=== PATIENT | female | born 1955 | race Caucasian/White ===

== ENCOUNTER 2016-05-04 09:58 | Outpatient (RCR) | payer BC ==
[~2016-05-04 09:58] MED LIST: CHOL20002 PO; ESTR0.5T PO; LORA1TAB59 PO
[2016-05-04 11:59] LABS: BASOPHILS % (AUTO) 1 % (0-10); EOSINOPHILS # (AUTO) 0.1 10^3/uL (0.0-0.3); EOSINOPHILS % (AUTO) 2 % (0-10); LYMPHOCYTES # (AUTO) 1.5 X 10^3 (1.0-4.0); LYMPHOCYTES % (AUTO) 30 % (12-44); MEAN CORPUSCULAR HEMOGLOBIN 29 PG (25-34); MEAN CORPUSCULAR HGB CONC 34 G/DL (32-36); MEAN CORPUSCULAR VOLUME 88 FL (80-99); MEAN PLATELET VOLUME 9.6 FL (7.4-10.4); MONOCYTES # (AUTO) 0.3 X 10^3 (0.0-1.0); MONOCYTES % (AUTO) 6 % (0-12); NEUTROPHILS # (AUTO) 3.2 X 10^3 (1.8-7.8); NEUTROPHILS % (AUTO) 61 % (42-75); PLATELET COUNT 275 10^3/uL (130-400); RED BLOOD COUNT 4.59 10^6/uL (4.35-5.85); RED CELL DISTRIBUTION WIDTH 12.8 % (10.0-14.5); WHITE BLOOD COUNT 5.1 10^3/uL (4.3-11.0)
[2016-05-04 12:19] LABS: ALANINE AMINOTRANSFERASE 9 U/L (0-55); ALBUMIN 4.6 G/DL (3.2-4.5); ANION GAP 10 MMOL/L (5-14); ASPARTATE AMINO TRANSFERASE 17 U/L (5-34); BILIRUBIN,TOTAL 0.3 MG/DL (0.1-1.0); BLOOD UREA NITROGEN 16 MG/DL (7-18); BUN/CREATININE RATIO 18; CALCIUM 9.2 MG/DL (8.5-10.1); CARBON DIOXIDE 26 MMOL/L (21-32); CHLORIDE 102 MMOL/L (98-107); GFR ESTIMATED > 60; GLUCOSE 97 MG/DL (70-105); POTASSIUM 4.4 MMOL/L (3.6-5.0); SODIUM 138 MMOL/L (135-145); TOTAL PROTEIN 7.3 G/DL (6.4-8.2)
== END 2016-05-13 13:01 | disposition home or self-care (01) ==
LOC: ONC 09:58
PROVIDERS: ATTEND Internal Medicine Hematology & Oncology
DX: C50.511 Malignant neoplasm of lower-outer quadrant of right female breast (principal); Z85.43 Personal history of malignant neoplasm of ovary; E53.8 Deficiency of other specified B group vitamins; M81.0 Age-related osteoporosis without current pathological fracture; Z17.0 Estrogen receptor positive status [ER+]; Z90.710 Acquired absence of both cervix and uterus; Z79.899 Other long term (current) drug therapy
CPT/HCPCS: 36415; 80053; 85025; 99213; 99214

== ENCOUNTER → 2016-05-11 | Outpatient (CLI) | payer BC ==
--- NOTE | 2016-05-11 16:44 | Diagnostic Imaging Report ---
EXAMINATION: PET-CT TECHNIQUE: Serum glucose level at the time of the study is: 82 mg/dL. 13 mCi of FDG was administered intravenously followed by obtaining PET images with corresponding noncontrast CT scan images. The CT scan was performed for anatomic correlation and attenuation correction and was not performed according to the diagnostic protocol of the areas covered. The scan was performed from the head to mid thighs. INDICATION: Breast cancer diagnosed recently with a biopsy on the right side. FINDINGS: There is an 8 mm nodule seen in the inferior central aspect of the right breast with minimal increased FDG uptake likely related to the recently diagnosed breast cancer. This does not have significantly increased FDG uptake and is presumably related to a small tumor size. There is no significantly increased FDG uptake in a correlating lymph node in the axilla. Mild hypermetabolism along the posterolateral aspect of the right humeral head at location of surgically placed anchor is seen. There is otherwise no hypermetabolic mass of significance seen in the chest. There is no hypermetabolic mass identified in the neck. There is symmetric FDG uptake noted in the brain. In the abdomen and pelvis: There is a prominent uptake related to tracer excretion within the urinary tract without suspicious hypermetabolic mass or enlarged lymph node identified otherwise. IMPRESSION: No significant hypermetabolism is seen in the subcentimeter biopsy-proven cancer in the right breast noted. This is likely secondary to the small tumor size. There is no PET evidence of lymph node spread or metastatic disease. Dictated by: Dictated on workstation # [id number]
== END ==
LOC: RAD 09:29
PROVIDERS: ATTEND Internal Medicine Hematology & Oncology
DX: C50.911 Malignant neoplasm of unspecified site of right female breast (principal)

== ENCOUNTER → 2016-07-16 | Outpatient (CLI) | payer BC ==
[~2016-07-16] VITALS: Ht 167.6 cm; Wt 52.2 kg
[~2016-07-16] MED LIST changes: +DENOSUMAB 60 MG/1 ML (PROLIA) SQ NR
--- OUTSIDE RECORDS SUMMARY | 2016-07-16 12:49 | XMS REPORT | Continuity of Care Document ---
Author Author [facility] Organization [facility] Address Unknown Phone Unavailable Care Team Providers Care Belt Sander Stone Name Role Phone Kody Artomaira PCP [phone] Source Comments Some departments are not documenting in the electronic medical record. If you do not see the information that you expected, contact Release of Information in the Health Information Management department at [phone] for further assistance in locating additional records.[facility] Active Allergies and Adverse Reactions Allergen Noted Date Severity Reactions Comments Phenergan 06/02/2016 High HALLUCINATIONS Sulfa (Sulfonamide 06/02/2016 Low SEE COMMENTS blood disorder Antibiotics) Current Medications Prescription Sig. Disp. Refills Start End Date Status Date denosumab (PROLIA) 60 Inject 60 mg under the Active mg/mL syrg skin once. once every 6 mos cyanocobalamin(DIL) Inject 100 mcg into the Active (VITAMIN B-12, RUBRAMIN) muscle every 30 days. 100 mcg/mL cholecalciferol(+) Take 2,000 Units by mouth Active (VITAMIN D-3) 2,[address] unit daily. tablet omeprazole DR(+) Take 20 mg by mouth three Active (PRILOSEC) 20 mg capsule times daily. polyethylene glycol 3350 Take 17 g by mouth three Active (MIRALAX) 17 g packet times daily. DOCUSATE CALCIUM (STOOL Take by mouth three Active SOFTENER PO) times daily. loratadine/pseudoephedrin Take 1 Tab by mouth as Active e (CLARITIN-D 12 HOUR) Needed. 5/120 mg tablet ondansetron hcl (ZOFRAN) Take 8 mg by mouth every Active 8 mg tablet 8 hours as needed for Nausea or Vomiting. DEXAMETHASONE (DECADRON Take by mouth. Active PO) DOCETAXEL (TAXOTERE IV) Administer through vein. Active CYCLOPHOSPHAMIDE (CYTOXAN Administer through vein. Active IV) Active Problems Problem Noted Date Malignant neoplasm of central portion of right female breast (HCC) 2016 Overview: DIAGNOSIS: 1. Right grade 3 IDC (ER95%, PR5%, HER2 1+, Ki-67 30%) 2. MyRisk negative HISTORY: Ms. Lehman is a female who presented [facility] on 06/02/2016 at age 61 for evaluation of right breast cancer. Ms. Lehman first palpated a lump in March 2016. She went in for screening mammogram at the beginning of 2015 and an asymmetry was seen in the right breast. Right breast sono-guided biospy revealed grade 3 invasive ductal carcinoma. An Oncotype DX was run on her biopsy specimen and came back as 26. BREAST IMAGING: Mammogram: -- Bilateral screening mammogram 04/13/16 ([place], [place]) revealed heterogeneously dense breast tissue. There was a 7 mm asymmetry along the medial periareolar region in the right breast. There were benign scattered calcifications bilaterally. The left breast demonstrated no change. -- Right diagnostic mammogram 04/23/16 ([place], [place]) revealed a persistent 7 mm asymmetry along the medial aspect of the periareolar region. Ultrasound: -- Right breast ultrasound 04/23/16 ([place], [place]) revealed at 6:00, 3 cm FTN there was a 7 x7 x 8 mm hypoechoic lesion with peripheral internal vascularity. There were no other abnormalities in the right breast. MRI: Staging: -- PET scan 05/11/16 ([place], [place]) revealed no evidence of distant metastasis. REPRODUCTIVE HEALTH: Age at first Menarche: 13 Age at First Live : 36 Age at Menopause: MIKE/BSO at 38, HRT x 20 years : 1 Para: 1 : None PROCEDURE: PERTINENT PMH: FAMILY HISTORY: Paternal aunt with breast cancer in 70s PHYSICAL EXAM on PRESENTATION: MEDICAL ONCOLOGY: Dr. Nat Gates REFERRED BY: Dr. Nat Gates Most Recent Encounters Date Type Specialty Providers Description 08/26/2016 [facility] Juan M Landin DO Malignant neoplasm of Encounter central portion of right female breast (HCC) 07/01/2016 Prep for Case Juan M Landin DO 06/25/2016 Orders Only Oncology Juan M Landin DO Malignant neoplasm of right female breast, unspecified site of breast (Primary Dx) 06/25/2016 Telephone Oncology Juan M Landin DO Results 06/21/2016 Hospital Radiology Juan M Landin, Encounter 06/21/2016 Hospital Radiology Juan M Landin, Encounter 06/21/2016 Hospital Radiology Juan M Landin DO Canceled (Other) Encounter 06/21/2016 Hospital Radiology Juan M Landin, Encounter 06/21/2016 Ancillary Oncology Juan M Landin DO Malignant neoplasm of Orders right female breast, unspecified site of breast (Primary Dx); Abnormal magnetic resonance imaging of left breast 06/16/2016 Screening Form 06/14/2016 Telephone Oncology Juan M Landin, Results 06/11/2016 Hospital Radiology Juan M Landin DO Encounter 06/09/2016 Screening Form 06/02/2016 Office Visit Oncology Juan M Landin DO Malignant neoplasm of central portion of right female breast (HCC) (Primary Dx) 06/02/2016 Hospital Radiology Juan M Landin, Encounter 06/02/2016 Hospital Radiology Juan M Landin DO Canceled (PROVIDER Encounter CANCELED) 06/02/2016 Ancillary Oncology Juan M Landin DO Malignant neoplasm of Orders right female breast, unspecified site of breast (Primary Dx) 06/01/2016 [facility] Juan M Landin DO Breast cancer (HCC) Encounter 05/26/2016 Ancillary Radiology Outpatient, Radiologist Diagnosis unknown Orders (Primary Dx) 05/26/2016 Ancillary Radiology Outpatient, Radiologist Diagnosis unknown Orders (Primary Dx) 05/21/2016 Telephone Oncology Juan M Landin DO Navigation Assessment 05/21/2016 Orders Only Oncology Juan M Landin DO Malignant neoplasm of right female breast, unspecified site of breast (HCC) (Primary Dx) 05/11/2016 Hospital Radiology Encounter 04/27/2016 Hospital Radiology Encounter 04/27/2016 Hospital Radiology Encounter 04/23/2016 Hospital Radiology Encounter 04/23/2016 Hospital Radiology Encounter Social History Tobacco Use Types Packs/Day Years Used Date Never Smoker Smokeless Tobacco: Never Used Alcohol Use Drinks/Week oz/Week Comments Yes 2 Cans of 1.8 rarely beer 1 Shots of liquor Last Filed Vital Signs Vital Sign Reading Time Taken Blood Pressure 120/55 06/02/2016 1:19 PM ADJUNCT FACULTY INSTRUCTOR Pulse 102 06/02/2016 1:19 PM ADJUNCT FACULTY INSTRUCTOR Temperature 36.7 C (98 F) 06/02/2016 1:19 PM ADJUNCT FACULTY INSTRUCTOR Respiratory Rate 16 06/02/2016 1:19 PM ADJUNCT FACULTY INSTRUCTOR Height 1.676 m (5' 6") 06/02/2016 1:19 PM ADJUNCT FACULTY INSTRUCTOR Weight 53.343 kg (117 lb 9.6 oz) 06/02/2016 1:19 PM ADJUNCT FACULTY INSTRUCTOR Body Mass Index 18.99 06/02/2016 1:19 PM ADJUNCT FACULTY INSTRUCTOR Oxygen Saturation 100% 06/02/2016 1:19 PM ADJUNCT FACULTY INSTRUCTOR Plan of Care Date Type Specialty Providers Description 08/23/2016 Appointment Breast Clinic / Breast Serene Barrera, RN Center 08/23/2016 Appointment Breast Clinic / Breast Juan M Landin DO Center [address] [place] [address] [phone] (Fax) 08/26/2016 Surgery Juan M Landin DO RIGHT RADIOACTIVE SEED [address] [facility] LOCALIZED LUMPECTOMY, [address] [place] [address] BIOPSY, POSSIBLE AXILLARY [phone] LYMPH NODE DISSECTION [phone] (Fax) WITH SKIN EXCISION 08/26/2016 Appointment Radiology Juan M Landin DO [address] [place] [address] [phone] (Fax) 09/06/2016 Appointment Breast Clinic / Breast Juan M Landin DO Center [address] [place] [address] [phone] (Fax) Health Maintenance Due Date Last Done Comments Hepatitis C Screening 1955 Physical (Comprehensive) 1962 Exam Pertussis Vaccine 1966 Tetanus Vaccine 1972 Cervical Cancer Screening 1976 Breast Cancer Screening 1995 Colorectal Cancer 2005 Screening Shingles Vaccine 2015 Influenza Vaccine 01/07/2017 Procedures from Last 3 Months Procedure Name Priority Date/Time Associated Diagnosis Comments PROCEDURE RECORD-SCAN 06/25/2016 Results for this 2:20 PM ADJUNCT FACULTY INSTRUCTOR procedure are in the results section. Results from Last 3 Months PROCEDURE RECORD-SCAN (06/25/2016 2:20 PM) Narrative Ordered by an unspecified provider. MAMMO DIAG LT (06/21/2016 3:20 PM) Impressions ACR BI-RADS Assessments: Post procedure mammogram for marker placement RECOMMENDATION: Follow-up with your physician. Narrative Last mammogram was performed 2 months ago. Reason for exam: addl eval requested from prior study. MRI Clip Placement Performed by: RUSS BRAUN Manipulative Therapy Specialist Document Design Specialist [id number] MAMMO DIAG LT: LEFT BREAST - JUNE 21, 2016 - Routine views. Technologist: Ledy MARADIAGA Tech Document Design Specialist Prior study comparison: June 11, 2016, bilateral [id number] MRI BREAST BILAT w/O W CONTRAST, performed at [facility] I.April 13, 2016, bilateral mammogram. History- Status post MRI guided biopsy with clip placement. Lateral and CC views document buckle-shaped clip placement at the expected location of the 3:00 left breast biopsy. Approved by Jolene Benoit M.D. on 06/22/2016 9:03 AM By my electronic signature, I attest that I have personally reviewed the images for this examination and formulated the interpretations and opinions expressed in this report Finalized by Arley Russell M.D. on 06/22/2016 11:38 AM. Dictated by Jolene Benoit M.D. on 06/22/2016 8:59 AM. Electronically signed and approved by: Arley Russell M.D. [id number] Procedure Note Interface, Radiant Results - [facility] Jun 22, 2016 11:38 AM ADJUNCT FACULTY INSTRUCTOR Last mammogram was performed 2 months ago. Reason for exam: addl eval requested from prior study. MRI Clip Placement Performed by: Ledy MARADIAGA Tech Document Design Specialist [id number] MAMMO DIAG LT: LEFT BREAST - JUNE 21, 2016 - Routine views. Technologist: Ledy MARADIAGA Tech Document Design Specialist Prior study comparison: June 11, 2016, bilateral [id number] MRI BREAST BILAT w/O W CONTRAST, performed at [facility] I. April 13, 2016, bilateral mammogram. History- Status post MRI guided biopsy with clip placement. Lateral and CC views document buckle-shaped clip placement at the expected location of the 3:00 left breast biopsy. Approved by Jolene Benoit M.D. on 06/22/2016 9:03 AM By my electronic signature, I attest that I have personally reviewed the images for this examination and formulated the interpretations and opinions expressed in this report Finalized by Arley Russell M.D. on 06/22/2016 11:38 AM. Dictated by Jolene Benoit M.D. on 06/22/2016 8:59 AM. Electronically signed and approved by: Arley Russell M.D. [id number] IMPRESSION ACR BI-RADS Assessments: Post procedure mammogram for marker placement RECOMMENDATION: Follow-up with your physician. MRI BIOPSY BREAST 1ST LESION LT (06/21/2016 2:47 PM) Impressions RECOMMENDATION: Follow-up with your physician.The benign pathology findings are concordant with imaging. Narrative [id number] MRI BIOPSY BREAST 1ST LESION LT: LEFT BREAST - JUNE 21, 2016 - Technologists: Maria Victoria Eid, program development manager; JAJA CAPONE History- 61-year-old female with right breast invasive ductal carcinoma who presents for MRI guided biopsy of left breast clumped non mass enhancement. No sonographic correlate was seen. Procedure- The procedure was performed by Dr. Benoit under direct supervision by Dr. Russell. Informed consent was obtained. Pre and post contrast images were obtained. Using sterile procedure, local anesthetic, and MRI guidance, approximately 12, 9 Gauge cores were obtained at 3:00 with a vacuum assistedautomated device, without complication. A marking clip was placed. Specimens were sent in formalin for histologic analysis. Approved by Jolene Benoit M.D. on 06/21/2016 3:49 PM By my electronic signature, I attest that I have personally reviewed the images for this examination and formulated the interpretations and opinions expressed in this report Finalized by Arley Russell M.D. on 06/22/2016 11:39 AM. Dictated by Jolene Benoit M.D. on 06/21/2016 3:46 PM. PATHOLOGY RESULTS: BENIGN Pathologist: Srinivasan Chery at [facility] Breast Imaging Benign intramammary lymph node, fibrosis, duct ectasia, and negative for carcinoma. Final Diagnosis: A. Breast, "left 3:00", core needle biopsy: Fragments of intramammary lymph node, negative for carcinoma. See comment Dense fibrosis and very focal duct ectasia. Comment: Wall CK immunostains performed on blocks A3 and A5 support the above diagnosis. Attestation: By this signature, I attest that I have personally formulated the final interpretation expressed in this report and that the above diagnosis is based upon my examination of the slides and/or other material indicated in this report. +++Electronically Signed Out By+++ ksw/06/22/2016 Interpreted by: Srinivasan Chery MD, Attending Physician Angela Upton M.D. Resident 06/25/2016 Electronically signed and approved by: Arley Russell M.D. [id number] Procedure Note Interface, Radiant Results - TueJun 30, 2016 10:00 AM ADJUNCT FACULTY INSTRUCTOR [id number] MRI BIOPSY BREAST 1ST LESION LT: LEFT BREAST - JUNE 21, 2016 - Technologists: Maria Victoria Eid, program development manager; JAJA CAPONE History- 61-year-old female with right breast invasive ductal carcinoma who presents for MRI guided biopsy of left breast clumped non mass enhancement. No sonographic correlate was seen. Procedure- The procedure was performed by Dr. Benoit under direct supervision by Dr. Russell. Informed consent was obtained. Pre and post contrast images were obtained. Using sterile procedure, local anesthetic, and MRI guidance, approximately 12, 9 Gauge cores were obtained at 3:00 with a vacuum assisted automated device, without complication. A marking clip was placed. Specimens were sent in formalin for histologic analysis. Approved by Jolene Benoit M.D. on 06/21/2016 3:49 PM By my electronic signature, I attest that I have personally reviewed the images for this examination and formulated the interpretations and opinions expressed in this report Finalized by Arley Russell M.D. on 06/22/2016 11:39 AM. Dictated by Jolene Benoit M.D. on 06/21/2016 3:46 PM. PATHOLOGY RESULTS: BENIGN Pathologist: Srinivasan Chery at [facility] Breast Imaging Benign intramammary lymph node, fibrosis, duct ectasia, and negative for carcinoma. Final Diagnosis: A. Breast, "left 3:00", core needle biopsy: Fragments of intramammary lymph node, negative for carcinoma. See comment Dense fibrosis and very focal duct ectasia. Comment: Wall CK immunostains performed on blocks A3 and A5 support the above diagnosis. Attestation: By this signature, I attest that I have personally formulated the final interpretation expressed in this report and that the above diagnosis is based upon my examination of the slides and/or other material indicated in this report. +++Electronically Signed Out By+++ ksw/06/22/2016 Interpreted by: Srinivasan Chery MD, Attending Physician Angela Upton M.D. Resident 06/25/2016 Electronically signed and approved by: Arley Russell M.D. [id number] IMPRESSION RECOMMENDATION: Follow-up with your physician. The benign pathology findings are concordant with imaging. US BREAST TARGET LT (06/21/2016 1:03 PM) Impressions ACR BI-RADS Assessments: BIRAD 2-Benign RECOMMENDATION: MR guided biopsy of the left breast. Narrative Reason for exam: mRI abnormality. [id number] US BREAST TARGET LT: LEFT BREAST - JUNE 21, 2016 - Technologist: Nathaly Saavedra senior project architect Patient presents to evaluate finding on recent MRI within the left breast. Ultrasound does not demonstrate correlate for the finding on MRI therefore MRI guided biopsy will be performed later today. Finalized by Arley Russell M.D. on 06/21/2016 2:04 PM. Dictated by Arley Russell M.D. on 06/21/2016 1:04 PM. Electronically signed and approved by: Arley Russell M.D. [id number] Procedure Note Interface, Radiant Results - Mon Jun 21, 2016 2:04 PM ADJUNCT FACULTY INSTRUCTOR Reason for exam: mRI abnormality. [id number] US BREAST TARGET LT: LEFT BREAST - JUNE 21, 2016 - Technologist: Nathaly Saavedra senior project architect Patient presents to evaluate finding on recent MRI within the left breast. Ultrasound does not demonstrate correlate for the finding on MRI therefore MRI guided biopsy will be performed later today. Finalized by Arley Russell M.D. on 06/21/2016 2:04 PM. Dictated by Arley Russell M.D. on 06/21/2016 1:04 PM. Electronically signed and approved by: Arley Russell M.D. [id number] IMPRESSION ACR BI-RADS Assessments: BIRAD 2-Benign RECOMMENDATION: MR guided biopsy of the left breast. SURGICAL PATHOLOGY (06/21/2016 8:34 AM) Component Value Range PATHOLOGY REPORT [facility] [email or web address] Shannan Tran MD, PhD, Director of Anatomic Pathology Department of Pathology and Laboratory Medicine [address] [place] [id number] Surgical Pathology Office: [phone] SURGICAL PATHOLOGY REPORT NAME: CHANDNI LEHMAN HUY SURG PATH #: [id number] MR #: [id number] SPECIMEN CLASS: SR BILLING #: [id number] ALT ID #: LOCATION: [facility] DATE OF PROCEDURE: 06/21/2016 AGE: 61 SEX: F DATE RECEIVED: 06/22/2016 : 1955 TIME RECEIVED: 08:34 PHYSICIAN: JUAN M LANDIN DO DATE OF REPORT: 06/25/2016 COPY TO: ARLEY RUSSELL MD DATE OF PRINTIN06/25/2016 ################################################## ###################### Final Diagnosis: A. Breast, "left 3:00", core needle biopsy: Fragments of intramammary lymph node, negative for carcinoma. See comment Dense fibrosis and very focal duct ectasia. Comment: Wall CK immunostains performed on blocks A3 and A5 support the above diagnosis. Attestation: By this signature, I attest that I have personally formulated the final interpretation expressed in this report and that the above diagnosis is based upon my examination of the slides and/or other material indicated in this report. +++Electronically Signed Out By+++ wyw/06/22/2016 Interpreted by: Srinivasan Chery MD, Attending Physician Angela Upton M.D. Resident 06/25/2016 ################################################## ###################### Material Received: A: left 3:00 History: 61-year-old female with a history of right breast cancer now with abnormal breast MRI. Gross Description: A. Received in formalin labeled "left breast at 3:00 MRI guided" is a 4.5 x 1.8 x 1.2 cm aggregate of cylindrical yellow-williamson, bloodstained, fatty tissue fragments. The specimen is entirely submitted in cassettes A1-A5. The specimen is placed in formalin at 3 PM on June 21, 2016. (tn) williamson/06/22/2016 Angela Upton M.D. Resident If immunohistochemical stains and/or in situ hybridization are cited in this report, the performance characteristics were determined by the Department of Pathology and Laboratory Medicine of the [facility] ([facility]) in compliance with CLIA'88 regulations. Some of these tests rely on the use of "analyte specific reagents" and are subject to specific labeling requirements by the FDA. Known positive and negative control tissues demonstrate appropriate staining. This testing was developed by the Department of Pathology and Laboratory Medicine of the [facility]. It has not been cleared or approved by the FDA. The FDA has determined that such clearance or approval is not necessary. MRI BREAST BILAT WO/W CONTRAST (06/11/2016 12:02 PM) Impressions ACR BI-RADS Assessments: BIRAD 4-Suspicious RECOMMENDATION: Needle biopsy and ultrasound of the left breast. Narrative Reason for exam: known biopsy proven malignancy. [id number] MRI BREAST BILAT W/O W CONTRAST: JUNE 11, 2016 - Technologist: Jacquelin Martinez program development manager Prior study comparison: June 02, 2016, right breast [id number] US BREAST TARGET RT, performed at [facility] Breast Imag.April 27, 2016, right breast mammogram. History: 61-year-old female with recently diagnosed right breast cancer. Menstrual status: Post hysterectomy Technique: Bilateral breast MRI was performed with dedicated breast coil, with and without contrast in the axial plane using fat saturation, 3D, and with additional T1 and T2 axial images obtained. Images were interpreted with the aid of CAD, including 3D generation of MIP images, subtractions, and pharmacokinetic analysis. 0.2 ml/kg of Multihance (gadolinium) was injected in bolus fashion. Findings- Background enhancement: Minimal Tissue density- dense RIGHT BREAST: At 6:00 anterior depth (2.8 cm from the nipple), there is a 0.8 cm transverse x 0.8 cm AP x 0.7 cm CC irregular enhancing mass with mixed kinetics including washout consistent with known malignancy. The biopsy marker is in adequate position. There is no abnormal skin enhancement. There is no axillary or internal mammary lymphadenopathy. LEFT BREAST: At 3:00 mid depth (image #152), there is a 0.7 cm clumped nonmass enhancement with mixed kinetics. There is no axillary or internal mammary lymphadenopathy. Ancillary findings: None. Impression: 1. 0.8 x 0.8 x 0.7 cm right breast mass at 6:00 anterior depth consistent with known malignancy. 2. 0.7 cm left breast clumped nonmass enhancement at 3:00 mid depth (image #152). Recommend second look ultrasound for biopsy planning. If not seen by ultrasound, then MRI guided biopsy can be performed. Approved by Sheldon Dickinson MD on 06/11/2016 2:48 PM By my electronic signature, I attest that I have personally reviewed the images for this examination and formulated the interpretations and opinions expressed in this report Finalized by Emanuel Martinez M.D. on 06/11/2016 3:18 PM. Dictated by Sheldon Dickinson MD on 06/11/2016 1:27 PM. Electronically signed and approved by: Emanuel Martinez M.D. [id number] Procedure Note Interface, Radiant Results - TueJun 11, 2016 3:19 PM ADJUNCT FACULTY INSTRUCTOR Reason for exam: known biopsy proven malignancy. [id number] MRI BREAST BILAT W/O W CONTRAST: JUNE 11, 2016 - Technologist: Jacquelin Martinez program development manager Prior study comparison: June 02, 2016, right breast [id number] US BREAST TARGET RT, performed at [facility]. April 27, 2016, right breast mammogram. History: 61-year-old female with recently diagnosed right breast cancer. Menstrual status: Post hysterectomy Technique: Bilateral breast MRI was performed with dedicated breast coil, with and without contrast in the axial plane using fat saturation, 3D, and with additional T1 and T2 axial images obtained. Images were interpreted with the aid of CAD, including 3D generation of MIP images, subtractions, and pharmacokinetic analysis. 0.2 ml/kg of Multihance (gadolinium) was injected in bolus fashion. Findings- Background enhancement: Minimal Tissue density- dense RIGHT BREAST: At 6:00 anterior depth (2.8 cm from the nipple), there is a 0.8 cm transverse x 0.8 cm AP x 0.7 cm CC irregular enhancing mass with mixed kinetics including washout consistent with known malignancy. The biopsy marker is in adequate position. There is no abnormal skin enhancement. There is no axillary or internal mammary lymphadenopathy. LEFT BREAST: At 3:00 mid depth (image #152), there is a 0.7 cm clumped nonmass enhancement with mixed kinetics. There is no axillary or internal mammary lymphadenopathy. Ancillary findings: None. Impression: 1. 0.8 x 0.8 x 0.7 cm right breast mass at 6:00 anterior depth consistent with known malignancy. 2. 0.7 cm left breast clumped nonmass enhancement at 3:00 mid depth (image #152). Recommend second look ultrasound for biopsy planning. If not seen by ultrasound, then MRI guided biopsy can be performed. Approved by Sheldon Dickinson MD on 06/11/2016 2:48 PM By my electronic signature, I attest that I have personally reviewed the images for this examination and formulated the interpretations and opinions expressed in this report Finalized by Emanuel Martinez M.D. on 06/11/2016 3:18 PM. Dictated by Sheldon Dickinson MD on 06/11/2016 1:27 PM. Electronically signed and approved by: Emanuel Martinez M.D. [id number] IMPRESSION ACR BI-RADS Assessments: BIRAD 4-Suspicious RECOMMENDATION: Needle biopsy and ultrasound of the left breast. POC CREATININE, RAD (06/11/2016 11:17 AM) Component Value Range Creatinine, POC 0.9 0.4-1.00 mg/dL PATHOLOGY REPORTS FROM OUTSIDE SCAN (06/07/2016 11:03 AM) Narrative Ordered by an unspecified provider. OUTSIDE PATHOLOGY CONSULT (06/02/2016 1:56 PM) Component Value Range PATHOLOGY REPORT [facility] [email or web address] Shannan Tran MD, PhD, Director of Anatomic Pathology Department of Pathology and Laboratory Medicine [address] [place] [id number] Surgical Pathology Office: [phone] PATHOLOGY CONSULTATION NAME: CHANDNI LEHMAN SURG PATH #: [id number] MR #: [id number] ALT ID #: LOCATION: [facility] DATE OF PROCEDURE: 06/02/2016 AGE: 61 SEX: F DATE RECEIVED: 06/02/2016 : 1955 TIME RECEIVED: 13:56 PHYSICIAN: JUAN M LANDIN DO DATE OF REPORT: 06/02/2016 COPY TO: DATE OF PRINTIN06/02/2016 ################################################## ###################### Final Diagnosis: A. Outside case [id number] (Date Collected: 04/27/2016) Breast, right, ultrasound guided needle biopsy: Invasive ductal carcinoma, nuclear grade 2, histologic grade I. See comment. Comment: Breast Cancer Checklist Specimen Type: Needle core biopsy. Laterality: Right Tumor Site: Not specified Histologic Type: Invasive ductal carcinoma Size: The entire tumor size is not known. The single greatest linear length is 0.3 cm and involved cores cannot be determined due to fragmentation. Histologic Grade (Elbert Histologic Score): I/III Tubule Formation: 2 Nuclear Grade: 2 Mitotic Count (40x objective): 1 Total Natalia Score: 5/9. DCIS: Absent Extent of DCIS (%): Absent Lymph-Vascular Invasion: Absent Microcalcifications: Absent Tumor Necrosis: Absent Lymph Node Sampling: n/a Prognostic markers (not received for review, results stated in outside report): Estrogen receptor: Positive, moderate (95%) Progesterone receptor: Positive, moderate (5%) Her2/Sheng: Negative, 1+ Ki-67: 30% The pathology stage assigned here should be regarded as provisional, as it reflects only current pathologic data and does not incorporate full knowledge of the patient's clinical status and/or prior pathology. Attestation: By this signature, I attest that I have personally formulated the final interpretation expressed in this report and that the above diagnosis is based upon my examination of the slides and/or other material indicated in this report. +++Electronically Signed Out+++ juan m/06/02/2016 Interpreted by: Vaibhav Diaz MD, Attending Physician Asad Teresa MD Fellow ################################################## ###################### Material Received: A: Outside Slides x1 [id number], [facility] [address] [place] [address] History: 61-year-old female with a clinical history of breast cancer. Gross Description: A. Received is one (1) outside slide labeled "[id number]", and a properly identified surgical pathology report from [facility] [address] [place] [address]. ; . juan m/06/02/2016 Vaibhav Diaz MD, Attending Physici If immunohistochemical stains and/or in situ hybridization are cited in this report, the performance characteristics were determined by the Department of Pathology and Laboratory Medicine of the [facility] ([employer]) in compliance with CLIA'88 regulations. Some of these tests rely on the use of "analyte specific reagents" and are subject to specific labeling requirements by the FDA. Known positive and negative control tissues demonstrate appropriate staining. This testing was developed by the Department of Pathology and Laboratory Medicine of the [facility]. It has not been cleared or approved by the FDA. The FDA has determined that such clearance or approval is not necessary. US BREAST TARGET RT (06/02/2016 11:08 AM) Impressions ACR BI-RADS Assessments: BIRAD 6-Known biopsy proven malignancy RECOMMENDATION: Treatment plan of the right breast. Narrative [id number] US BREAST TARGET RT: RIGHT BREAST - JUNE 02, 2016 - Technologist: Jose Espinoza, Warehouse General Laborer Prior study comparison: April 27, 2016, right breast mammogram.April 23, 2016, right breast mammogram.April 23, 2016, right breast ultrasound. Targeted ultrasound of the right breast was performed. History. 61-year-old female with recently diagnosed right breast cancer presents for presurgical evaluation. Review of outside mammography shows a right biopsy marker at the 6:00 subareolar region within an obscured mass. The patient has heterogeneously dense breast tissue and additional mammograms are not indicated. Outside mammograms are sufficient. At 6:00 3 cm from the nipple, there is a 0.7 x 0.5 x 0.7 cm oval hypoechoic mass with indistinct margins containing an internal biopsy marker consistent with known malignancy. No suspicious right axillary lymph nodes are seen. By report, the patient has had outside PET/CT imaging. The patient does have dense breast tissue and if breast MRI would be helpful to evaluate for extent of disease or screen the contralateral breast, then this could be performed. Approved by Sheldon Dickinson MD on 06/02/2016 11:21 AM By my electronic signature, I attest that I have personally reviewed the images for this examination and formulated the interpretations and opinions expressed in this report Finalized by Nikki Bassett M.D. on 06/02/2016 11:29 AM. Dictated by Sheldon Dickinson MD on 06/02/2016 11:15 AM. Electronically signed and approved by: Nikki Bassett M.D. 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 April 23, 2016, right breast mammogram. April 23, 2016, right breast ultrasound. Targeted ultrasound of the right breast was performed. History. 61-year-old female with recently diagnosed right breast cancer presents for presurgical evaluation. Review of outside mammography shows a right biopsy marker at the 6:00 subareolar region within an obscured mass. The patient has heterogeneously dense breast tissue and additional mammograms are not indicated. Outside mammograms are sufficient. At 6:00 3 cm from the nipple, there is a 0.7 x 0.5 x 0.7 cm oval hypoechoic mass with indistinct margins containing an internal biopsy marker consistent with known malignancy. No suspicious right axillary lymph nodes are seen. By report, the patient has had outside PET/CT imaging. The patient does have dense breast tissue and if breast MRI would be helpful to evaluate for extent of disease or screen the contralateral breast, then this could be performed. Approved by Sheldon Dickinson MD on 06/02/2016 11:21 AM By my electronic signature, I attest that I have personally reviewed the images for this examination and formulated the interpretations and opinions expressed in this report Finalized by Nikki Bassett M.D. on 06/02/2016 11:29 AM. Dictated by Sheldon Dickinson MD on 06/02/2016 11:15 AM. Electronically signed and approved by: Nikki Bassett M.D. [id number] IMPRESSION ACR BI-RADS Assessments: BIRAD 6-Known biopsy proven malignancy RECOMMENDATION: Treatment plan of the right breast. NM MISC EXTERNAL IMAGING (05/11/2016) Narrative This order has been auto finalized and does not contain a result. MAMMO DIAG EXTERNAL IMAGING (04/27/2016 12:15 AM)Only the most recent of 2 results within the time period is included. Narrative This order has been auto finalized and does not contain a result. US BREAST BIOPSY EXTERNAL IMAGING (04/27/2016) Narrative This order has been auto finalized and does not contain a result. US BREAST EXTERNAL IMAGING (04/23/2016 12:15 AM) Narrative This order has been auto finalized and does not contain a result.
[2016-07-16 13:30] VITALS: BP 109/65
== END ==
LOC: SDC 12:46
PROVIDERS: ATTEND Nurse Practitioner Family
DX: M81.0 Age-related osteoporosis without current pathological fracture (principal)
CPT/HCPCS: 96372

== ENCOUNTER 2016-08-12 12:05 | Outpatient (RCR) | payer BC ==
--- OUTSIDE RECORDS SUMMARY | 2016-05-20 09:58 | XMS REPORT | Continuity of Care Document ---
Author Author [facility] Organization [facility] Address Unknown Phone Unavailable Care Team Providers Care Oyster Cultivator Name Role Phone SAUD DICKINSON MD PCP Insurance Providers Payer Name Policy Number Subscriber Name Relationship [facility] [id number] Najma Lehman 18 Self / Same As Patient Advance Directives Directive Response Recorded Date/Time Advance Directives No 04/27/16 1:35pm Health Care Power of Blind Cleaner No 04/27/16 1:35pm Organ Donor No 04/27/16 1:35pm Problems No problem information available. Medications Current Home Medications Medication Dose Units Route Directions Days/Qty Instructions Start Date Loratadine/Pseudoephedrine 1 Each 1 Each Oral Daily 06/06/15 Estradiol 0.5 Mg 0.5 Mg Oral Daily 06/06/15 Cholecalciferol (Vitamin D3) 2,000 Unit 2,000 Unit Oral Daily Social History Social History Problem Response Recorded Date/Time Recent Foreign Travel No 05/11/2016 9:28am Hospital Discharge Instructions Current inpatient/outpatient. Discharge instructions are currently unavailable. Plan of Care Prescriptions Functional Status No functional status results. Allergies, Adverse Reactions, Alerts Allergen Type Severity Reaction Status Last Updated Sulfa (Sulfonamide Antibiotics) ([id number]) Allergy Mild Active Immunizations No immunization records. Vital Signs Acute Vital Signs Vital Response Date/Time Temperature (Fahrenheit) 99.0 degrees F (97.6 - 99.5) 04/27/2016 1:35pm Temperature (Calculated Celsius) 37.91212 degrees C (36.4 - 37.5) 04/27/2016 1:35pm Temperature Source Tympanic 04/27/2016 1:35pm Pulse Rate (adult) 92 bpm (60 - 90) 04/27/2016 1:35pm Respiratory Rate 20 bpm (12 - 24) 04/27/2016 1:35pm O2 Sat by Pulse Oximetry 99 % (88 - 100) 04/27/2016 1:35pm Blood Pressure 138/80 mm Hg 04/27/2016 1:35pm Blood Pressure Mean 99 mm Hg 04/27/2016 1:35pm Pain Numeric Pain Scale 0-No Pain 04/27/2016 1:35pm Height (Feet) 5 feet 04/27/2016 1:35pm Height (Inches) 6.00 inches 04/27/2016 1:35pm Height (Calculated Centimeters) 167.795908 cm 04/27/2016 1:35pm Weight (Pounds) 115 pounds 04/27/2016 1:35pm Weight (Ounces) 0.0 oz 04/27/2016 1:35pm Weight (Calculated Grams) 55791.12 gm 04/27/2016 1:35pm Weight (Calculated Kilograms) 52.973951 kilograms 04/27/2016 1:35pm Calculated BMI 18.6 04/27/2016 1:35pm Results Pending Laboratory Results Test Name Collection Date/Time Procedures Procedure Status Date Provider(s) BX BREAST 1ST LESION US IMAG Completed 04/27/16 AIDA DUNCAN MD Encounters Encounter Location Arrival/Admit Date Discharge/Depart Date Attending Provider Registered Clinic [facility] 05/11/16 9:29am TOBIAS LANCE Discharged Recurring [facility] 05/04/16 9:58am 1:01pm TOBIAS LANCE Registered Clinic [facility] 04/27/16 12:56pm VENKATA MARIO APRN Registered Clinic [facility] 04/23/16 7:33am VENKATA MARIO APRN Registered Clinic [facility] 04/13/16 1:09pm VENKATA MARIO APRN
[2016-05-27 13:03] LABS: BASOPHILS % (AUTO) 0 % (0-10); EOSINOPHILS % (AUTO) 0 % (0-10); LYMPHOCYTES # (AUTO) 0.6 X 10^3 (1.0-4.0); LYMPHOCYTES % (AUTO) 5 % (12-44); MEAN CORPUSCULAR HEMOGLOBIN 29 PG (25-34); MEAN CORPUSCULAR HGB CONC 34 G/DL (32-36); MEAN CORPUSCULAR VOLUME 86 FL (80-99); MEAN PLATELET VOLUME 9.5 FL (7.4-10.4); MONOCYTES # (AUTO) 0.2 X 10^3 (0.0-1.0); MONOCYTES % (AUTO) 1 % (0-12); NEUTROPHILS # (AUTO) 12.4 X 10^3 (1.8-7.8); NEUTROPHILS % (AUTO) 94 % (42-75); PLATELET COUNT 310 10^3/uL (130-400); RED BLOOD COUNT 4.51 10^6/uL (4.35-5.85); RED CELL DISTRIBUTION WIDTH 13.2 % (10.0-14.5); WHITE BLOOD COUNT 13.2 10^3/uL (4.3-11.0)
[2016-05-27 13:34] LABS: CALCIUM 10.2 MG/DL (8.5-10.1); CREATININE SERUM 0.96 MG/DL (0.60-1.30); POTASSIUM 3.8 MMOL/L (3.6-5.0)
[2016-06-03 12:09] LABS: BASOPHILS % (AUTO) 3 % (0-10); EOSINOPHILS # (AUTO) 0.1 10^3/uL (0.0-0.3); EOSINOPHILS % (AUTO) 5 % (0-10); LYMPHOCYTES # (AUTO) 0.8 X 10^3 (1.0-4.0); LYMPHOCYTES % (AUTO) 81 % (12-44); MEAN CORPUSCULAR HEMOGLOBIN 29 PG (25-34); MEAN CORPUSCULAR HGB CONC 33 G/DL (32-36); MEAN CORPUSCULAR VOLUME 87 FL (80-99); MEAN PLATELET VOLUME 9.8 FL (7.4-10.4); MONOCYTES # (AUTO) 0.1 X 10^3 (0.0-1.0); MONOCYTES % (AUTO) 9 % (0-12); NEUTROPHILS % (AUTO) 3 % (42-75); PLATELET COUNT 186 10^3/uL (130-400); RED BLOOD COUNT 4.16 10^6/uL (4.35-5.85); RED CELL DISTRIBUTION WIDTH 12.5 % (10.0-14.5)
[2016-06-03 12:35] LABS: ANION GAP 9 MMOL/L (5-14); BLOOD UREA NITROGEN 12 MG/DL (7-18); BUN/CREATININE RATIO 14; CARBON DIOXIDE 28 MMOL/L (21-32); CHLORIDE 102 MMOL/L (98-107); CREATININE SERUM 0.85 MG/DL (0.60-1.30); GFR ESTIMATED > 60; GLUCOSE 91 MG/DL (70-105); POTASSIUM 3.8 MMOL/L (3.6-5.0); SODIUM 139 MMOL/L (135-145)
[2016-06-10 12:21] LABS: BASOPHILS # (AUTO) 0.1 10^3/uL (0.0-0.1); BASOPHILS % (AUTO) 4 % (0-10); EOSINOPHILS % (AUTO) 1 % (0-10); LYMPHOCYTES # (AUTO) 1.5 X 10^3 (1.0-4.0); LYMPHOCYTES % (AUTO) 43 % (12-44); MEAN CORPUSCULAR HEMOGLOBIN 29 PG (25-34); MEAN CORPUSCULAR HGB CONC 34 G/DL (32-36); MEAN CORPUSCULAR VOLUME 87 FL (80-99); MEAN PLATELET VOLUME 8.6 FL (7.4-10.4); MONOCYTES # (AUTO) 0.6 X 10^3 (0.0-1.0); MONOCYTES % (AUTO) 17 % (0-12); NEUTROPHILS # (AUTO) 1.3 X 10^3 (1.8-7.8); NEUTROPHILS % (AUTO) 36 % (42-75); PLATELET COUNT 311 10^3/uL (130-400); RED BLOOD COUNT 4.22 10^6/uL (4.35-5.85); RED CELL DISTRIBUTION WIDTH 12.9 % (10.0-14.5); WHITE BLOOD COUNT 3.6 10^3/uL (4.3-11.0)
[2016-06-10 13:40] LABS: ANION GAP 8 MMOL/L (5-14); BLOOD UREA NITROGEN 12 MG/DL (7-18); BUN/CREATININE RATIO 13; CALCIUM 9.6 MG/DL (8.5-10.1); CARBON DIOXIDE 29 MMOL/L (21-32); CHLORIDE 103 MMOL/L (98-107); CREATININE SERUM 0.91 MG/DL (0.60-1.30); GFR ESTIMATED > 60; GLUCOSE 78 MG/DL (70-105); POTASSIUM 3.8 MMOL/L (3.6-5.0); SODIUM 140 MMOL/L (135-145)
[2016-06-17 13:46] LABS: BASOPHILS % (AUTO) 0 % (0-10); EOSINOPHILS % (AUTO) 0 % (0-10); LYMPHOCYTES # (AUTO) 0.6 X 10^3 (1.0-4.0); LYMPHOCYTES % (AUTO) 5 % (12-44); MEAN CORPUSCULAR HEMOGLOBIN 29 PG (25-34); MEAN CORPUSCULAR HGB CONC 34 G/DL (32-36); MEAN CORPUSCULAR VOLUME 86 FL (80-99); MONOCYTES # (AUTO) 0.2 X 10^3 (0.0-1.0); MONOCYTES % (AUTO) 2 % (0-12); NEUTROPHILS # (AUTO) 12.5 X 10^3 (1.8-7.8); NEUTROPHILS % (AUTO) 94 % (42-75); PLATELET COUNT 368 10^3/uL (130-400); RED BLOOD COUNT 4.01 10^6/uL (4.35-5.85); RED CELL DISTRIBUTION WIDTH 13.4 % (10.0-14.5); WHITE BLOOD COUNT 13.4 10^3/uL (4.3-11.0)
[2016-06-17 14:09] LABS: ALANINE AMINOTRANSFERASE 11 U/L (0-55); ALBUMIN 4.4 G/DL (3.2-4.5); ANION GAP 11 MMOL/L (5-14); ASPARTATE AMINO TRANSFERASE 14 U/L (5-34); BILIRUBIN,TOTAL 0.2 MG/DL (0.1-1.0); BLOOD UREA NITROGEN 13 MG/DL (7-18); BUN/CREATININE RATIO 15; CALCIUM 9.3 MG/DL (8.5-10.1); CARBON DIOXIDE 21 MMOL/L (21-32); CHLORIDE 108 MMOL/L (98-107); CREATININE SERUM 0.85 MG/DL (0.60-1.30); GFR ESTIMATED > 60; GLUCOSE 182 MG/DL (70-105); MAGNESIUM 2.2 MG/DL (1.8-2.4); POTASSIUM 3.8 MMOL/L (3.6-5.0); SODIUM 140 MMOL/L (135-145); TOTAL PROTEIN 6.8 G/DL (6.4-8.2)
[2016-06-24 12:17] LABS: MEAN CORPUSCULAR HEMOGLOBIN 28 PG (25-34); MEAN CORPUSCULAR HGB CONC 32 G/DL (32-36); MEAN CORPUSCULAR VOLUME 88 FL (80-99); MEAN PLATELET VOLUME 9.9 FL (7.4-10.4); PLATELET COUNT 201 10^3/uL (130-400); RED BLOOD COUNT 4.01 10^6/uL (4.35-5.85); WHITE BLOOD COUNT 6.5 10^3/uL (4.3-11.0)
[2016-06-24 12:47] LABS: ANION GAP 12 MMOL/L (5-14); BLOOD UREA NITROGEN 15 MG/DL (7-18); BUN/CREATININE RATIO 18; CALCIUM 9.5 MG/DL (8.5-10.1); CARBON DIOXIDE 26 MMOL/L (21-32); CHLORIDE 102 MMOL/L (98-107); CREATININE SERUM 0.83 MG/DL (0.60-1.30); GFR ESTIMATED > 60; GLUCOSE 94 MG/DL (70-105); POTASSIUM 3.8 MMOL/L (3.6-5.0); SODIUM 140 MMOL/L (135-145)
[2016-07-01 12:22] LABS: BASOPHILS # (AUTO) 0.1 10^3/uL (0.0-0.1); BASOPHILS % (AUTO) 2 % (0-10); EOSINOPHILS # (AUTO) 0.1 10^3/uL (0.0-0.3); EOSINOPHILS % (AUTO) 1 % (0-10); LYMPHOCYTES # (AUTO) 1.2 X 10^3 (1.0-4.0); LYMPHOCYTES % (AUTO) 17 % (12-44); MEAN CORPUSCULAR HEMOGLOBIN 29 PG (25-34); MEAN CORPUSCULAR HGB CONC 33 G/DL (32-36); MEAN CORPUSCULAR VOLUME 89 FL (80-99); MEAN PLATELET VOLUME 9.1 FL (7.4-10.4); MONOCYTES # (AUTO) 0.5 X 10^3 (0.0-1.0); MONOCYTES % (AUTO) 6 % (0-12); NEUTROPHILS # (AUTO) 5.2 X 10^3 (1.8-7.8); NEUTROPHILS % (AUTO) 74 % (42-75); PLATELET COUNT 152 10^3/uL (130-400); RED BLOOD COUNT 3.67 10^6/uL (4.35-5.85); RED CELL DISTRIBUTION WIDTH 13.9 % (10.0-14.5)
[2016-07-01 12:45] LABS: ANION GAP 9 MMOL/L (5-14); BLOOD UREA NITROGEN 9 MG/DL (7-18); BUN/CREATININE RATIO 10; CALCIUM 8.7 MG/DL (8.5-10.1); CARBON DIOXIDE 25 MMOL/L (21-32); CHLORIDE 106 MMOL/L (98-107); CREATININE SERUM 0.86 MG/DL (0.60-1.30); GFR ESTIMATED > 60; GLUCOSE 100 MG/DL (70-105); POTASSIUM 3.9 MMOL/L (3.6-5.0); SODIUM 140 MMOL/L (135-145)
[2016-07-08 14:02] LABS: BASOPHILS % (AUTO) 0 % (0-10); EOSINOPHILS % (AUTO) 0 % (0-10); LYMPHOCYTES # (AUTO) 0.6 X 10^3 (1.0-4.0); LYMPHOCYTES % (AUTO) 6 % (12-44); MEAN CORPUSCULAR HEMOGLOBIN 29 PG (25-34); MEAN CORPUSCULAR HGB CONC 33 G/DL (32-36); MEAN CORPUSCULAR VOLUME 88 FL (80-99); MEAN PLATELET VOLUME 8.7 FL (7.4-10.4); MONOCYTES # (AUTO) 0.1 X 10^3 (0.0-1.0); MONOCYTES % (AUTO) 2 % (0-12); NEUTROPHILS # (AUTO) 8.1 X 10^3 (1.8-7.8); NEUTROPHILS % (AUTO) 92 % (42-75); PLATELET COUNT 537 10^3/uL (130-400); RED BLOOD COUNT 3.49 10^6/uL (4.35-5.85); RED CELL DISTRIBUTION WIDTH 14.9 % (10.0-14.5); WHITE BLOOD COUNT 8.8 10^3/uL (4.3-11.0)
[2016-07-08 14:43] LABS: ALANINE AMINOTRANSFERASE 13 U/L (0-55); ALBUMIN 4.1 G/DL (3.2-4.5); ANION GAP 13 MMOL/L (5-14); ASPARTATE AMINO TRANSFERASE 16 U/L (5-34); BILIRUBIN,TOTAL 0.2 MG/DL (0.1-1.0); BLOOD UREA NITROGEN 13 MG/DL (7-18); BUN/CREATININE RATIO 15; CALCIUM 9.1 MG/DL (8.5-10.1); CARBON DIOXIDE 20 MMOL/L (21-32); CHLORIDE 108 MMOL/L (98-107); CREATININE SERUM 0.85 MG/DL (0.60-1.30); GFR ESTIMATED > 60; GLUCOSE 171 MG/DL (70-105); MAGNESIUM 2.1 MG/DL (1.8-2.4); POTASSIUM 3.6 MMOL/L (3.6-5.0); SODIUM 141 MMOL/L (135-145); TOTAL PROTEIN 6.5 G/DL (6.4-8.2)
[2016-07-15 11:40] LABS: BASOPHILS # (AUTO) 0.1 10^3/uL (0.0-0.1); BASOPHILS % (AUTO) 3 % (0-10); EOSINOPHILS # (AUTO) 0.2 10^3/uL (0.0-0.3); EOSINOPHILS % (AUTO) 4 % (0-10); LYMPHOCYTES # (AUTO) 0.8 X 10^3 (1.0-4.0); LYMPHOCYTES % (AUTO) 18 % (12-44); MEAN CORPUSCULAR HEMOGLOBIN 29 PG (25-34); MEAN CORPUSCULAR HGB CONC 33 G/DL (32-36); MEAN CORPUSCULAR VOLUME 90 FL (80-99); MEAN PLATELET VOLUME 9.4 FL (7.4-10.4); MONOCYTES # (AUTO) 1.4 X 10^3 (0.0-1.0); MONOCYTES % (AUTO) 31 % (0-12); NEUTROPHILS % (AUTO) 44 % (42-75); PLATELET COUNT 233 10^3/uL (130-400); RED BLOOD COUNT 3.53 10^6/uL (4.35-5.85); RED CELL DISTRIBUTION WIDTH 14.4 % (10.0-14.5); WHITE BLOOD COUNT 4.5 10^3/uL (4.3-11.0)
[2016-07-15 12:11] LABS: ANION GAP 8 MMOL/L (5-14); BLOOD UREA NITROGEN 12 MG/DL (7-18); BUN/CREATININE RATIO 15; CALCIUM 9.6 MG/DL (8.5-10.1); CARBON DIOXIDE 30 MMOL/L (21-32); CHLORIDE 101 MMOL/L (98-107); GFR ESTIMATED > 60; GLUCOSE 99 MG/DL (70-105); POTASSIUM 4.4 MMOL/L (3.6-5.0); SODIUM 139 MMOL/L (135-145)
[2016-07-22 12:08] LABS: BASOPHILS # (AUTO) 0.1 10^3/uL (0.0-0.1); BASOPHILS % (AUTO) 1 % (0-10); EOSINOPHILS # (AUTO) 0.1 10^3/uL (0.0-0.3); EOSINOPHILS % (AUTO) 1 % (0-10); LYMPHOCYTES % (AUTO) 12 % (12-44); MEAN CORPUSCULAR HEMOGLOBIN 30 PG (25-34); MEAN CORPUSCULAR HGB CONC 32 G/DL (32-36); MEAN CORPUSCULAR VOLUME 92 FL (80-99); MEAN PLATELET VOLUME 8.5 FL (7.4-10.4); MONOCYTES # (AUTO) 0.5 X 10^3 (0.0-1.0); MONOCYTES % (AUTO) 6 % (0-12); NEUTROPHILS # (AUTO) 6.8 X 10^3 (1.8-7.8); NEUTROPHILS % (AUTO) 81 % (42-75); PLATELET COUNT 196 10^3/uL (130-400); RED BLOOD COUNT 3.49 10^6/uL (4.35-5.85); RED CELL DISTRIBUTION WIDTH 15.6 % (10.0-14.5); WHITE BLOOD COUNT 8.4 10^3/uL (4.3-11.0)
[2016-07-22 12:35] LABS: ANION GAP 9 MMOL/L (5-14); BLOOD UREA NITROGEN 8 MG/DL (7-18); BUN/CREATININE RATIO 10; CALCIUM 8.7 MG/DL (8.5-10.1); CARBON DIOXIDE 26 MMOL/L (21-32); CHLORIDE 105 MMOL/L (98-107); CREATININE SERUM 0.81 MG/DL (0.60-1.30); GFR ESTIMATED > 60; GLUCOSE 96 MG/DL (70-105); POTASSIUM 4.7 MMOL/L (3.6-5.0); SODIUM 140 MMOL/L (135-145)
[2016-07-29 14:08] LABS: BASOPHILS % (AUTO) 0 % (0-10); EOSINOPHILS % (AUTO) 0 % (0-10); LYMPHOCYTES # (AUTO) 0.6 X 10^3 (1.0-4.0); LYMPHOCYTES % (AUTO) 8 % (12-44); MEAN CORPUSCULAR HEMOGLOBIN 30 PG (25-34); MEAN CORPUSCULAR HGB CONC 33 G/DL (32-36); MEAN CORPUSCULAR VOLUME 91 FL (80-99); MEAN PLATELET VOLUME 8.4 FL (7.4-10.4); MONOCYTES # (AUTO) 0.1 X 10^3 (0.0-1.0); MONOCYTES % (AUTO) 2 % (0-12); NEUTROPHILS # (AUTO) 7.3 X 10^3 (1.8-7.8); NEUTROPHILS % (AUTO) 91 % (42-75); PLATELET COUNT 483 10^3/uL (130-400); RED BLOOD COUNT 3.27 10^6/uL (4.35-5.85); RED CELL DISTRIBUTION WIDTH 15.7 % (10.0-14.5); WHITE BLOOD COUNT 8.1 10^3/uL (4.3-11.0)
[2016-07-29 14:44] LABS: ALANINE AMINOTRANSFERASE 10 U/L (0-55); ANION GAP 12 MMOL/L (5-14); ASPARTATE AMINO TRANSFERASE 13 U/L (5-34); BILIRUBIN,TOTAL 0.3 MG/DL (0.1-1.0); BLOOD UREA NITROGEN 16 MG/DL (7-18); BUN/CREATININE RATIO 20; CALCIUM 9.1 MG/DL (8.5-10.1); CARBON DIOXIDE 21 MMOL/L (21-32); CHLORIDE 107 MMOL/L (98-107); CREATININE SERUM 0.82 MG/DL (0.60-1.30); GFR ESTIMATED > 60; GLUCOSE 183 MG/DL (70-105); MAGNESIUM 2.2 MG/DL (1.8-2.4); POTASSIUM 3.7 MMOL/L (3.6-5.0); SODIUM 140 MMOL/L (135-145); TOTAL PROTEIN 6.5 G/DL (6.4-8.2)
[2016-08-05 09:38] LABS: BASOPHILS # (AUTO) 0.1 10^3/uL (0.0-0.1); BASOPHILS % (AUTO) 3 % (0-10); EOSINOPHILS # (AUTO) 0.3 10^3/uL (0.0-0.3); EOSINOPHILS % (AUTO) 14 % (0-10); LYMPHOCYTES # (AUTO) 0.5 X 10^3 (1.0-4.0); LYMPHOCYTES % (AUTO) 25 % (12-44); MEAN CORPUSCULAR HEMOGLOBIN 30 PG (25-34); MEAN CORPUSCULAR HGB CONC 32 G/DL (32-36); MEAN CORPUSCULAR VOLUME 92 FL (80-99); MEAN PLATELET VOLUME 8.7 FL (7.4-10.4); MONOCYTES # (AUTO) 0.6 X 10^3 (0.0-1.0); MONOCYTES % (AUTO) 30 % (0-12); NEUTROPHILS # (AUTO) 0.5 X 10^3 (1.8-7.8); NEUTROPHILS % (AUTO) 29 % (42-75); PLATELET COUNT 253 10^3/uL (130-400); RED BLOOD COUNT 3.26 10^6/uL (4.35-5.85); RED CELL DISTRIBUTION WIDTH 14.9 % (10.0-14.5); WHITE BLOOD COUNT 1.8 10^3/uL (4.3-11.0)
[2016-08-05 10:18] LABS: ANION GAP 4 MMOL/L (5-14); BLOOD UREA NITROGEN 10 MG/DL (7-18); BUN/CREATININE RATIO 11; CALCIUM 8.8 MG/DL (8.5-10.1); CARBON DIOXIDE 31 MMOL/L (21-32); CHLORIDE 102 MMOL/L (98-107); CREATININE SERUM 0.87 MG/DL (0.60-1.30); GFR ESTIMATED > 60; GLUCOSE 149 MG/DL (70-105); POTASSIUM 3.9 MMOL/L (3.6-5.0); SODIUM 137 MMOL/L (135-145)
[2016-08-06 10:21] LABS: BILIRUBIN,URINE NEGATIVE (NEGATIVE); KETONES,URINE NEGATIVE (NEGATIVE); LEUKOCYTE ESTERASE ,URINE 1+ (NEGATIVE); NITRITE,URINE NEGATIVE (NEGATIVE); PH,URINE 6 (5-9); PROTEIN,URINE 1+ (NEGATIVE); UROBILINOGEN,URINE 1 MG/DL (NORMAL)
[2016-08-06 10:49] LABS: SQUAMOUS EPITHELIAL CELL,UR RARE /HPF; WBC,URINE 0-2 /HPF
[2016-08-09 11:31] LABS: BASOPHILS # (AUTO) 0.1 10^3/uL (0.0-0.1); BASOPHILS % (AUTO) 0 % (0-10); EOSINOPHILS # (AUTO) 0.3 10^3/uL (0.0-0.3); EOSINOPHILS % (AUTO) 2 % (0-10); LYMPHOCYTES # (AUTO) 1.1 X 10^3 (1.0-4.0); LYMPHOCYTES % (AUTO) 9 % (12-44); MEAN CORPUSCULAR HEMOGLOBIN 29 PG (25-34); MEAN CORPUSCULAR HGB CONC 32 G/DL (32-36); MEAN CORPUSCULAR VOLUME 91 FL (80-99); MEAN PLATELET VOLUME 8.2 FL (7.4-10.4); MONOCYTES # (AUTO) 0.8 X 10^3 (0.0-1.0); MONOCYTES % (AUTO) 6 % (0-12); NEUTROPHILS # (AUTO) 9.7 X 10^3 (1.8-7.8); NEUTROPHILS % (AUTO) 82 % (42-75); PLATELET COUNT 311 10^3/uL (130-400); RED BLOOD COUNT 3.25 10^6/uL (4.35-5.85); RED CELL DISTRIBUTION WIDTH 15.5 % (10.0-14.5); WHITE BLOOD COUNT 11.9 10^3/uL (4.3-11.0)
--- NOTE | 2016-08-09 12:05 | Diagnostic Imaging Report ---
PA and lateral chest at 1113 hours. INDICATION: Fever, history of breast cancer. There are no prior chest examinations available for comparison. FINDINGS: Heart size is within normal limits. The lungs are generally clear. There is no sign of failure, pneumonia or pleural effusion to suggest an acute abnormality. On the lateral view however, there is a faint 7 MM noncalcified nodular density in the retrosternal region of the midportion of the sternum. There is no corresponding abnormality seen on the lateral view and this finding may well be secondary to superimposition as opposed to a parenchymal abnormality. In reviewing this PET/CT exam of 05/11/16, there is no sign of a mass in this area either. If further evaluation is desired however, then repeat CT chest exam would be recommended. The mediastinum is not widened. There is levoscoliosis of thoracolumbar junction. The osseous structures are intact. There is a small radiopaque density overlying the right humeral head. IMPRESSION: 1. There is no evidence for an acute cardiopulmonary abnormality. 2. The small nodular density seen on the lateral view only may merely be secondary to superimposition. Additional considerations as above. Dictated by: Dictated on workstation # [id number]
[2016-08-09 12:31] LABS: ALANINE AMINOTRANSFERASE 13 U/L (0-55); ALBUMIN 3.6 G/DL (3.2-4.5); ANION GAP 9 MMOL/L (5-14); ASPARTATE AMINO TRANSFERASE 15 U/L (5-34); BILIRUBIN,TOTAL 0.2 MG/DL (0.1-1.0); BLOOD UREA NITROGEN 10 MG/DL (7-18); BUN/CREATININE RATIO 12; CALCIUM 8.9 MG/DL (8.5-10.1); CARBON DIOXIDE 26 MMOL/L (21-32); CHLORIDE 103 MMOL/L (98-107); CREATININE SERUM 0.85 MG/DL (0.60-1.30); GFR ESTIMATED > 60; GLUCOSE 79 MG/DL (70-105); POTASSIUM 4.1 MMOL/L (3.6-5.0); SODIUM 138 MMOL/L (135-145); TOTAL PROTEIN 6.3 G/DL (6.4-8.2)
[~2016-08-12] VITALS: Ht 165.1 cm; Wt 55.8 kg
[~2016-08-12 12:05] MED LIST changes: +CYCLOPHOSPHAMIDE IV SCH; -DENOSUMAB 60 MG/1 ML (PROLIA) SQ NR; +DOCETAXEL IV SCH; +FAMOTIDINE 20MG/2ML IV (CANCER CTR) IV SCH; +FOSAPREPITANT 150 MG/NS 150 MG IVPB (CANCER CTR) IV PRN; +NORMAL SALINE IV SCH; +NS IV 1000 ML (CANCER CTR) IV SCH; +NS IV SCH; +PALONOSETRON 0.25 MG, DEXAMETHASONE 10 MG/NS 50 ML IVPB IV PRN; +PEGFILGRASTIM 6 MG/0.6ML NEULASTA SC SCH; +diphenhydrAMINE 25 MG TAB (BENADRYL) CANCER CENTER PO ONE; +diphenhydrAMINE 50 MG/ML INJ (CANCER CENTER) IV PRN
[2016-08-12 12:19] LABS: BASOPHILS % (AUTO) 0 % (0-10); EOSINOPHILS # (AUTO) 0.2 10^3/uL (0.0-0.3); EOSINOPHILS % (AUTO) 2 % (0-10); LYMPHOCYTES # (AUTO) 0.9 X 10^3 (1.0-4.0); LYMPHOCYTES % (AUTO) 10 % (12-44); MEAN CORPUSCULAR HEMOGLOBIN 28 PG (25-34); MEAN CORPUSCULAR HGB CONC 31 G/DL (32-36); MEAN CORPUSCULAR VOLUME 91 FL (80-99); MEAN PLATELET VOLUME 7.9 FL (7.4-10.4); MONOCYTES # (AUTO) 0.5 X 10^3 (0.0-1.0); MONOCYTES % (AUTO) 6 % (0-12); NEUTROPHILS # (AUTO) 6.8 X 10^3 (1.8-7.8); NEUTROPHILS % (AUTO) 81 % (42-75); PLATELET COUNT 285 10^3/uL (130-400); RED BLOOD COUNT 3.23 10^6/uL (4.35-5.85); RED CELL DISTRIBUTION WIDTH 15.3 % (10.0-14.5); WHITE BLOOD COUNT 8.4 10^3/uL (4.3-11.0)
== END 2016-08-18 | disposition home or self-care (01) ==
LOC: ONC 12:05
PROVIDERS: ATTEND Internal Medicine Hematology & Oncology
DX: Z51.11 Encounter for antineoplastic chemotherapy (principal); C50.511 Malignant neoplasm of lower-outer quadrant of right female breast; Z85.43 Personal history of malignant neoplasm of ovary; E53.8 Deficiency of other specified B group vitamins; M81.0 Age-related osteoporosis without current pathological fracture; Z17.0 Estrogen receptor positive status [ER+]; Z90.710 Acquired absence of both cervix and uterus; Z79.899 Other long term (current) drug therapy
CPT/HCPCS: 36415; 71020; 80048; 80053; 81000; 83735; 85025; 87040; 87804; 93005; 96367; 96372; 96375; 96413; 96417; 99213

== ENCOUNTER → 2016-11-17 | Outpatient (RCR) | payer BC ==
[2016-08-19 13:59] LABS: BASOPHILS % (AUTO) 0 % (0-10); EOSINOPHILS # (AUTO) 0.3 10^3/uL (0.0-0.3); EOSINOPHILS % (AUTO) 6 % (0-10); LYMPHOCYTES # (AUTO) 1.1 X 10^3 (1.0-4.0); LYMPHOCYTES % (AUTO) 24 % (12-44); MEAN CORPUSCULAR HEMOGLOBIN 28 PG (25-34); MEAN CORPUSCULAR HGB CONC 30 G/DL (32-36); MEAN CORPUSCULAR VOLUME 93 FL (80-99); MONOCYTES # (AUTO) 0.4 X 10^3 (0.0-1.0); MONOCYTES % (AUTO) 10 % (0-12); NEUTROPHILS # (AUTO) 2.6 X 10^3 (1.8-7.8); NEUTROPHILS % (AUTO) 59 % (42-75); PLATELET COUNT 499 10^3/uL (130-400); RED BLOOD COUNT 3.37 10^6/uL (4.35-5.85); RED CELL DISTRIBUTION WIDTH 15.9 % (10.0-14.5); WHITE BLOOD COUNT 4.3 10^3/uL (4.3-11.0)
[2016-08-19 14:37] LABS: ALANINE AMINOTRANSFERASE 12 U/L (0-55); ANION GAP 8 MMOL/L (5-14); ASPARTATE AMINO TRANSFERASE 18 U/L (5-34); BILIRUBIN,TOTAL 0.2 MG/DL (0.1-1.0); BLOOD UREA NITROGEN 16 MG/DL (7-18); BUN/CREATININE RATIO 19; CALCIUM 9.2 MG/DL (8.5-10.1); CARBON DIOXIDE 26 MMOL/L (21-32); CHLORIDE 107 MMOL/L (98-107); CREATININE SERUM 0.85 MG/DL (0.60-1.30); GFR ESTIMATED > 60; GLUCOSE 102 MG/DL (70-105); POTASSIUM 3.7 MMOL/L (3.6-5.0); SODIUM 141 MMOL/L (135-145); TOTAL PROTEIN 6.6 G/DL (6.4-8.2)
[~2016-11-17] MED LIST changes: -CYCLOPHOSPHAMIDE IV SCH; -DOCETAXEL IV SCH; -FAMOTIDINE 20MG/2ML IV (CANCER CTR) IV SCH; -FOSAPREPITANT 150 MG/NS 150 MG IVPB (CANCER CTR) IV PRN; -NORMAL SALINE IV SCH; -NS IV 1000 ML (CANCER CTR) IV SCH; -NS IV SCH; -PALONOSETRON 0.25 MG, DEXAMETHASONE 10 MG/NS 50 ML IVPB IV PRN; -PEGFILGRASTIM 6 MG/0.6ML NEULASTA SC SCH; -diphenhydrAMINE 25 MG TAB (BENADRYL) CANCER CENTER PO ONE; -diphenhydrAMINE 50 MG/ML INJ (CANCER CENTER) IV PRN
[2016-11-17 10:16] LABS: BASOPHILS % (AUTO) 1 % (0-10); EOSINOPHILS # (AUTO) 0.1 10^3/uL (0.0-0.3); EOSINOPHILS % (AUTO) 4 % (0-10); LYMPHOCYTES # (AUTO) 0.8 X 10^3 (1.0-4.0); LYMPHOCYTES % (AUTO) 25 % (12-44); MEAN CORPUSCULAR HEMOGLOBIN 28 PG (25-34); MEAN CORPUSCULAR HGB CONC 33 G/DL (32-36); MEAN CORPUSCULAR VOLUME 85 FL (80-99); MEAN PLATELET VOLUME 8.7 FL (7.4-10.4); MONOCYTES # (AUTO) 0.3 X 10^3 (0.0-1.0); MONOCYTES % (AUTO) 9 % (0-12); NEUTROPHILS # (AUTO) 1.8 X 10^3 (1.8-7.8); NEUTROPHILS % (AUTO) 61 % (42-75); PLATELET COUNT 227 10^3/uL (130-400); RED BLOOD COUNT 4.51 10^6/uL (4.35-5.85); RED CELL DISTRIBUTION WIDTH 13.7 % (10.0-14.5)
[2016-11-17 10:53] LABS: ALANINE AMINOTRANSFERASE 10 U/L (0-55); ALBUMIN 4.2 GM/DL (3.2-4.5); ANION GAP 9 MMOL/L (5-14); ASPARTATE AMINO TRANSFERASE 14 U/L (5-34); BILIRUBIN,TOTAL 0.2 MG/DL (0.1-1.0); BLOOD UREA NITROGEN 13 MG/DL (7-18); BUN/CREATININE RATIO 16; CALCIUM 9.2 MG/DL (8.5-10.1); CARBON DIOXIDE 27 MMOL/L (21-32); CHLORIDE 106 MMOL/L (98-107); CREATININE SERUM 0.83 MG/DL (0.60-1.30); GFR ESTIMATED > 60; GLUCOSE 95 MG/DL (70-105); POTASSIUM 3.8 MMOL/L (3.6-5.0); SODIUM 142 MMOL/L (135-145); TOTAL PROTEIN 6.9 GM/DL (6.4-8.2)
== END | disposition home or self-care (01) ==
LOC: ONC 08-19 13:51
PROVIDERS: ATTEND Internal Medicine Hematology & Oncology
DX: Z51.0 Encounter for antineoplastic radiation therapy (principal); C50.511 Malignant neoplasm of lower-outer quadrant of right female breast; Z85.43 Personal history of malignant neoplasm of ovary; E53.8 Deficiency of other specified B group vitamins; M81.0 Age-related osteoporosis without current pathological fracture; Z17.0 Estrogen receptor positive status [ER+]; Z90.710 Acquired absence of both cervix and uterus; Z79.899 Other long term (current) drug therapy
CPT/HCPCS: 36415; 77290; 77295; 77300; 77307; 77332; 77334; 77336; 77417; 80053; 82306; 83735; 85025; 99213; 99214

== ENCOUNTER → 2016-12-02 | Outpatient (CLI) | payer BC ==
--- NOTE | 2016-12-02 10:36 | Diagnostic Imaging Report ---
Examination: DEXA scan. Indication: osteopenia Technique: Bone mineral density estimated based on dual energy radiography over the lumbar spine and femoral necks, was performed. Findings: The lumbar spine T-score is -1.4. There is 14% increased density measurement compared to 04/01/2015 exam. This is probably related to an element of degenerative sclerosis. The left femoral neck T score is -2.4 and on the right side is -2. This is 5.5% increased density measurement compared to 2015 exam. IMPRESSION: Marked osteopenia.. Dictated by: Dictated on workstation # [id number]
== END ==
LOC: RAD 09:20
PROVIDERS: ATTEND Internal Medicine Hematology & Oncology
DX: M85.89 Other specified disorders of bone density and structure, multiple sites (principal)
CPT/HCPCS: 77080

== ENCOUNTER 2016-12-21 15:29 | Outpatient (RCR) | payer BC ==
[2016-12-15 10:55] LABS: BASOPHILS # (AUTO) 0.1 10^3/uL (0.0-0.1); BASOPHILS % (AUTO) 1 % (0-10); EOSINOPHILS # (AUTO) 0.1 10^3/uL (0.0-0.3); EOSINOPHILS % (AUTO) 3 % (0-10); LYMPHOCYTES # (AUTO) 0.9 X 10^3 (1.0-4.0); LYMPHOCYTES % (AUTO) 24 % (12-44); MEAN CORPUSCULAR HEMOGLOBIN 28 PG (25-34); MEAN CORPUSCULAR HGB CONC 34 G/DL (32-36); MEAN CORPUSCULAR VOLUME 84 FL (80-99); MEAN PLATELET VOLUME 9.1 FL (7.4-10.4); MONOCYTES # (AUTO) 0.3 X 10^3 (0.0-1.0); MONOCYTES % (AUTO) 8 % (0-12); NEUTROPHILS # (AUTO) 2.5 X 10^3 (1.8-7.8); NEUTROPHILS % (AUTO) 64 % (42-75); PLATELET COUNT 280 10^3/uL (130-400); RED BLOOD COUNT 4.63 10^6/uL (4.35-5.85); RED CELL DISTRIBUTION WIDTH 13.9 % (10.0-14.5); WHITE BLOOD COUNT 3.9 10^3/uL (4.3-11.0)
[2016-12-15 11:20] LABS: ALANINE AMINOTRANSFERASE 11 U/L (0-55); ALBUMIN 4.5 GM/DL (3.2-4.5); ANION GAP 9 MMOL/L (5-14); ASPARTATE AMINO TRANSFERASE 17 U/L (5-34); BILIRUBIN,TOTAL 0.4 MG/DL (0.1-1.0); BLOOD UREA NITROGEN 15 MG/DL (7-18); BUN/CREATININE RATIO 17; CALCIUM 10.2 MG/DL (8.5-10.1); CARBON DIOXIDE 28 MMOL/L (21-32); CHLORIDE 103 MMOL/L (98-107); CREATININE SERUM 0.89 MG/DL (0.60-1.30); GFR ESTIMATED > 60; GLUCOSE 95 MG/DL (70-105); POTASSIUM 3.9 MMOL/L (3.6-5.0); SODIUM 140 MMOL/L (135-145); TOTAL PROTEIN 7.7 GM/DL (6.4-8.2)
== END 2017-02-05 | disposition home or self-care (01) ==
LOC: ONC 15:29
PROVIDERS: ATTEND Internal Medicine Hematology & Oncology
DX: C50.511 Malignant neoplasm of lower-outer quadrant of right female breast (principal); Z85.43 Personal history of malignant neoplasm of ovary; E53.8 Deficiency of other specified B group vitamins; M81.0 Age-related osteoporosis without current pathological fracture; Z17.0 Estrogen receptor positive status [ER+]; Z90.710 Acquired absence of both cervix and uterus; Z79.899 Other long term (current) drug therapy
CPT/HCPCS: 36415; 80053; 85025; 99213

== ENCOUNTER → 2017-01-21 | Outpatient (CLI) | payer BC ==
[~2017-01-21] VITALS: Ht 167.6 cm; Wt 52.2 kg
[2017-01-21] MEDS: DENOSUMAB 60 MG/1 ML (PROLIA) SQ SCH ×2 (12:33→13:37)
[2017-01-21 12:35] VITALS: BP 116/73
== END ==
LOC: SDC 01-14 12:58
PROVIDERS: ATTEND Nurse Practitioner Family
DX: M81.0 Age-related osteoporosis without current pathological fracture (principal)
CPT/HCPCS: 96372

== ENCOUNTER 2017-04-05 13:56 | Outpatient (RCR) | payer BC ==
[2017-04-05 14:12] LABS: BASOPHILS # (AUTO) 0.1 10^3/uL (0.0-0.1); BASOPHILS % (AUTO) 1 % (0-10); EOSINOPHILS # (AUTO) 0.1 10^3/uL (0.0-0.3); EOSINOPHILS % (AUTO) 2 % (0-10); HEMATOCRIT 38 % (35-52); HEMOGLOBIN 12.8 G/DL (11.5-16.0); LYMPHOCYTES # (AUTO) 1.1 X 10^3 (1.0-4.0); LYMPHOCYTES % (AUTO) 20 % (12-44); MEAN CORPUSCULAR HEMOGLOBIN 30 PG (25-34); MEAN CORPUSCULAR HGB CONC 33 G/DL (32-36); MEAN CORPUSCULAR VOLUME 89 FL (80-99); MEAN PLATELET VOLUME 8.9 FL (7.4-10.4); MONOCYTES # (AUTO) 0.4 X 10^3 (0.0-1.0); MONOCYTES % (AUTO) 7 % (0-12); NEUTROPHILS # (AUTO) 3.8 X 10^3 (1.8-7.8); NEUTROPHILS % (AUTO) 70 % (42-75); PLATELET COUNT 250 10^3/uL (130-400); RED CELL DISTRIBUTION WIDTH 12.5 % (10.0-14.5); WHITE BLOOD COUNT 5.4 10^3/uL (4.3-11.0)
[2017-04-05 14:33] LABS: ALANINE AMINOTRANSFERASE 12 U/L (0-55); ALBUMIN 4.4 GM/DL (3.2-4.5); ALKALINE PHOSPHATASE 68 U/L (40-136); BILIRUBIN,TOTAL 0.3 MG/DL (0.1-1.0); BUN/CREATININE RATIO 14; CARBON DIOXIDE 30 MMOL/L (21-32); CHLORIDE 105 MMOL/L (98-107); CREATININE SERUM 0.93 MG/DL (0.60-1.30); GFR ESTIMATED > 60; GLUCOSE 102 MG/DL (70-105); POTASSIUM 3.9 MMOL/L (3.6-5.0); SODIUM 142 MMOL/L (135-145); TOTAL PROTEIN 7.2 GM/DL (6.4-8.2)
== END 2017-07-04 | disposition home or self-care (01) ==
LOC: ONC 13:56
PROVIDERS: ATTEND Internal Medicine Hematology & Oncology
DX: C50.511 Malignant neoplasm of lower-outer quadrant of right female breast (principal); C77.3 Secondary and unspecified malignant neoplasm of axilla and upper limb lymph nodes; Z85.43 Personal history of malignant neoplasm of ovary; E53.8 Deficiency of other specified B group vitamins; M81.0 Age-related osteoporosis without current pathological fracture; Z17.0 Estrogen receptor positive status [ER+]; Z90.710 Acquired absence of both cervix and uterus; Z79.811 Long term (current) use of aromatase inhibitors; Z79.899 Other long term (current) drug therapy
CPT/HCPCS: 36415; 80053; 85025; 99213

== ENCOUNTER 2017-07-12 13:18 | Outpatient (RCR) | payer BC ==
[2017-07-12 13:29] LABS: BASOPHILS % (AUTO) 1 % (0-10); EOSINOPHILS # (AUTO) 0.1 10^3/uL (0.0-0.3); EOSINOPHILS % (AUTO) 2 % (0-10); HEMATOCRIT 40 % (35-52); HEMOGLOBIN 13.6 G/DL (11.5-16.0); LYMPHOCYTES # (AUTO) 1.2 X 10^3 (1.0-4.0); LYMPHOCYTES % (AUTO) 21 % (12-44); MEAN CORPUSCULAR HEMOGLOBIN 30 PG (25-34); MEAN CORPUSCULAR HGB CONC 34 G/DL (32-36); MEAN CORPUSCULAR VOLUME 89 FL (80-99); MEAN PLATELET VOLUME 9.3 FL (7.4-10.4); MONOCYTES # (AUTO) 0.3 X 10^3 (0.0-1.0); MONOCYTES % (AUTO) 6 % (0-12); NEUTROPHILS % (AUTO) 71 % (42-75); PLATELET COUNT 250 10^3/uL (130-400); RED BLOOD COUNT 4.53 10^6/uL (4.35-5.85); RED CELL DISTRIBUTION WIDTH 12.5 % (10.0-14.5); WHITE BLOOD COUNT 5.6 10^3/uL (4.3-11.0)
[2017-07-12 13:52] LABS: ALBUMIN 4.8 GM/DL (3.2-4.5); BILIRUBIN,TOTAL 0.4 MG/DL (0.1-1.0); CALCIUM 9.8 MG/DL (8.5-10.1); CREATININE SERUM 1.05 MG/DL (0.60-1.30); POTASSIUM 4.1 MMOL/L (3.6-5.0); TOTAL PROTEIN 7.8 GM/DL (6.4-8.2)
== END 2017-10-10 | disposition home or self-care (01) ==
LOC: ONC 13:18
PROVIDERS: ATTEND Internal Medicine Hematology & Oncology
DX: C50.511 Malignant neoplasm of lower-outer quadrant of right female breast (principal); C77.3 Secondary and unspecified malignant neoplasm of axilla and upper limb lymph nodes; Z85.43 Personal history of malignant neoplasm of ovary; E53.8 Deficiency of other specified B group vitamins; M81.0 Age-related osteoporosis without current pathological fracture; Z17.0 Estrogen receptor positive status [ER+]; Z90.710 Acquired absence of both cervix and uterus; Z79.811 Long term (current) use of aromatase inhibitors; Z79.899 Other long term (current) drug therapy
CPT/HCPCS: 36415; 80053; 85025; 99213

== ENCOUNTER → 2017-07-19 | Outpatient (CLI) | payer BC ==
--- NOTE | 2017-07-19 14:52 | Diagnostic Imaging Report ---
INDICATION: Right knee pain. FINDINGS: Three views of the right knee show no fracture, dislocation, or other acute abnormalities. IMPRESSION: Negative right knee. Dictated by: Dictated on workstation # [id number]
== END ==
LOC: RAD 13:34
PROVIDERS: ATTEND Family Medicine
DX: M25.561 Pain in right knee (principal)
CPT/HCPCS: 73562

== ENCOUNTER → 2017-07-22 | Outpatient (CLI) | payer BC ==
[~2017-07-22] VITALS: Ht 167.6 cm; Wt 52.2 kg
[~2017-07-22] MED LIST changes: +DENOSUMAB 60 MG/1 ML (PROLIA) SQ ONE
[2017-07-22 12:35] VITALS: BP 103/64
== END ==
LOC: SDC 11:59
PROVIDERS: ATTEND Nurse Practitioner Family
DX: M81.0 Age-related osteoporosis without current pathological fracture (principal)
CPT/HCPCS: 96372

== ENCOUNTER 2017-12-09 13:30 | Outpatient (RCR) | payer BC ==
[2017-10-11 13:10] LABS: BASOPHILS % (AUTO) 1 % (0-10); EOSINOPHILS # (AUTO) 0.1 10^3/uL (0.0-0.3); EOSINOPHILS % (AUTO) 3 % (0-10); HEMATOCRIT 40 % (35-52); HEMOGLOBIN 13.1 G/DL (11.5-16.0); LYMPHOCYTES % (AUTO) 23 % (12-44); MEAN CORPUSCULAR HEMOGLOBIN 29 PG (25-34); MEAN CORPUSCULAR HGB CONC 33 G/DL (32-36); MEAN CORPUSCULAR VOLUME 89 FL (80-99); MONOCYTES # (AUTO) 0.2 X 10^3 (0.0-1.0); MONOCYTES % (AUTO) 6 % (0-12); NEUTROPHILS % (AUTO) 68 % (42-75); PLATELET COUNT 255 10^3/uL (130-400); RED BLOOD COUNT 4.46 10^6/uL (4.35-5.85); RED CELL DISTRIBUTION WIDTH 13.1 % (10.0-14.5); WHITE BLOOD COUNT 4.4 10^3/uL (4.3-11.0)
[2017-10-11 13:29] LABS: ALBUMIN 4.6 GM/DL (3.2-4.5); BILIRUBIN,TOTAL 0.3 MG/DL (0.1-1.0); CALCIUM 9.7 MG/DL (8.5-10.1); CREATININE SERUM 1.04 MG/DL (0.60-1.30); POTASSIUM 3.9 MMOL/L (3.6-5.0); TOTAL PROTEIN 7.5 GM/DL (6.4-8.2)
[~2017-12-09 13:30] MED LIST changes: -DENOSUMAB 60 MG/1 ML (PROLIA) SQ ONE
== END 2018-01-09 | disposition home or self-care (01) ==
LOC: ONC 13:30
PROVIDERS: ATTEND Internal Medicine Hematology & Oncology
DX: C50.511 Malignant neoplasm of lower-outer quadrant of right female breast (principal); C77.3 Secondary and unspecified malignant neoplasm of axilla and upper limb lymph nodes; Z85.43 Personal history of malignant neoplasm of ovary; E53.8 Deficiency of other specified B group vitamins; M81.0 Age-related osteoporosis without current pathological fracture; Z17.0 Estrogen receptor positive status [ER+]; Z90.710 Acquired absence of both cervix and uterus; Z79.811 Long term (current) use of aromatase inhibitors; Z79.899 Other long term (current) drug therapy
CPT/HCPCS: 36415; 80053; 85025; 99213

== ENCOUNTER 2018-01-17 13:15 | Outpatient (RCR) | payer BC ==
[2018-01-17 13:36] LABS: BASOPHILS % (AUTO) 1 % (0-10); EOSINOPHILS # (AUTO) 0.2 10^3/uL (0.0-0.3); EOSINOPHILS % (AUTO) 4 % (0-10); HEMATOCRIT 38 % (35-52); HEMOGLOBIN 12.5 G/DL (11.5-16.0); LYMPHOCYTES # (AUTO) 0.9 X 10^3 (1.0-4.0); LYMPHOCYTES % (AUTO) 21 % (12-44); MEAN CORPUSCULAR HEMOGLOBIN 30 PG (25-34); MEAN CORPUSCULAR HGB CONC 33 G/DL (32-36); MEAN CORPUSCULAR VOLUME 89 FL (80-99); MEAN PLATELET VOLUME 9.1 FL (7.4-10.4); MONOCYTES # (AUTO) 0.2 X 10^3 (0.0-1.0); MONOCYTES % (AUTO) 5 % (0-12); NEUTROPHILS % (AUTO) 69 % (42-75); PLATELET COUNT 269 10^3/uL (130-400); RED CELL DISTRIBUTION WIDTH 12.9 % (10.0-14.5); WHITE BLOOD COUNT 4.3 10^3/uL (4.3-11.0)
[2018-01-17 13:54] LABS: ALANINE AMINOTRANSFERASE 10 U/L (0-55); ALBUMIN 4.5 GM/DL (3.2-4.5); ALKALINE PHOSPHATASE 69 U/L (40-136); BILIRUBIN,TOTAL 0.2 MG/DL (0.1-1.0); BUN/CREATININE RATIO 17; CALCIUM 9.7 MG/DL (8.5-10.1); CARBON DIOXIDE 25 MMOL/L (21-32); CHLORIDE 105 MMOL/L (98-107); CREATININE SERUM 0.89 MG/DL (0.60-1.30); GFR ESTIMATED > 60; GLUCOSE 110 MG/DL (70-105); POTASSIUM 3.7 MMOL/L (3.6-5.0); SODIUM 141 MMOL/L (135-145); TOTAL PROTEIN 7.1 GM/DL (6.4-8.2)
== END 2018-02-05 | disposition home or self-care (01) ==
LOC: ONC 13:15
PROVIDERS: ATTEND Internal Medicine Hematology & Oncology
DX: C50.511 Malignant neoplasm of lower-outer quadrant of right female breast (principal); C77.3 Secondary and unspecified malignant neoplasm of axilla and upper limb lymph nodes; Z85.43 Personal history of malignant neoplasm of ovary; E53.8 Deficiency of other specified B group vitamins; M81.0 Age-related osteoporosis without current pathological fracture; Z17.0 Estrogen receptor positive status [ER+]; Z90.710 Acquired absence of both cervix and uterus; Z79.811 Long term (current) use of aromatase inhibitors; Z79.899 Other long term (current) drug therapy
CPT/HCPCS: 36415; 80053; 85025; 99213

== ENCOUNTER → 2018-02-10 | Outpatient (CLI) | payer BC ==
[~2018-02-10] VITALS: Ht 167.6 cm; Wt 52.2 kg
[~2018-02-10] MED LIST changes: +DENOSUMAB 60 MG/1 ML (PROLIA) SQ SCH
[2018-02-10 13:25] VITALS: BP 113/67
== END ==
LOC: SDC 13:25
PROVIDERS: ATTEND Nurse Practitioner Family
DX: M81.0 Age-related osteoporosis without current pathological fracture (principal)
CPT/HCPCS: 96372

== ENCOUNTER → 2018-03-23 | Outpatient (CLI) | payer BC ==
[~2018-03-23] MED LIST changes: -DENOSUMAB 60 MG/1 ML (PROLIA) SQ SCH
--- NOTE | 2018-03-23 09:10 | Diagnostic Imaging Report ---
INDICATION: Right breast carcinoma, status post lumpectomy. Correlation is made with prior mammogram from 02/25/2017, 08/23/2016 as well as 04/13/2016. 2-D and 3-D bilateral diagnostic mammography was performed with CAD. Both breasts are heterogeneously dense limiting the sensitivity of mammography. Lumpectomy changes in the inferior right breast are again noted. Overall parenchymal pattern appears stable. No new mass or malignant appearing microcalcifications are seen. There are benign calcifications present. Axilla are unremarkable. Impression: BI-RADS category 2 Stable bilateral mammograms when compared with examination from 2015 and 2016. ACR BI-RADS Category 2: Benign findings. Result letter will be mailed to the patient. Note: At least 10% of breast cancer is not imaged by mammography. Dictated by: Dictated on workstation # [id number]
== END ==
LOC: RAD 08:20
PROVIDERS: ATTEND Nurse Practitioner Adult Health
DX: C50.911 Malignant neoplasm of unspecified site of right female breast (principal); Z98.890 Other specified postprocedural states
CPT/HCPCS: 77066

== ENCOUNTER 2018-04-14 08:43 | Outpatient (RCR) | payer BC ==
[2018-04-14 08:58] LABS: BASOPHILS % (AUTO) 1 % (0-10); EOSINOPHILS # (AUTO) 0.3 10^3/uL (0.0-0.3); EOSINOPHILS % (AUTO) 6 % (0-10); HEMATOCRIT 40 % (35-52); HEMOGLOBIN 12.8 G/DL (11.5-16.0); LYMPHOCYTES % (AUTO) 21 % (12-44); MEAN CORPUSCULAR HEMOGLOBIN 29 PG (25-34); MEAN CORPUSCULAR HGB CONC 32 G/DL (32-36); MEAN CORPUSCULAR VOLUME 89 FL (80-99); MEAN PLATELET VOLUME 9.1 FL (7.4-10.4); MONOCYTES # (AUTO) 0.3 X 10^3 (0.0-1.0); MONOCYTES % (AUTO) 7 % (0-12); NEUTROPHILS # (AUTO) 2.9 X 10^3 (1.8-7.8); NEUTROPHILS % (AUTO) 65 % (42-75); PLATELET COUNT 261 10^3/uL (130-400); RED CELL DISTRIBUTION WIDTH 12.8 % (10.0-14.5); WHITE BLOOD COUNT 4.5 10^3/uL (4.3-11.0)
[2018-04-14 09:21] LABS: ALBUMIN 4.5 GM/DL (3.2-4.5); BILIRUBIN,TOTAL 0.3 MG/DL (0.1-1.0); CALCIUM 10.1 MG/DL (8.5-10.1); CREATININE SERUM 1.02 MG/DL (0.60-1.30); POTASSIUM 3.5 MMOL/L (3.6-5.0); TOTAL PROTEIN 7.4 GM/DL (6.4-8.2)
[2018-05-03] MEDS ORDERED: CYAN100092 IJ (15:23)
[2018-05-03] MEDS ORDERED: [UNRECOGNIZED DRUG - CODE] PO (15:23)
[2018-05-03] MEDS ORDERED: CALC600T12 PO (15:25)
[2018-05-03] MEDS ORDERED: LETR2.5T5 PO (15:31)
== END 2018-07-13 | disposition home or self-care (01) ==
LOC: ONC 08:43
PROVIDERS: ATTEND Internal Medicine Hematology & Oncology
DX: C50.511 Malignant neoplasm of lower-outer quadrant of right female breast (principal); C77.3 Secondary and unspecified malignant neoplasm of axilla and upper limb lymph nodes; Z85.43 Personal history of malignant neoplasm of ovary; E53.8 Deficiency of other specified B group vitamins; M81.0 Age-related osteoporosis without current pathological fracture; Z17.0 Estrogen receptor positive status [ER+]; Z90.710 Acquired absence of both cervix and uterus; Z79.811 Long term (current) use of aromatase inhibitors; Z79.899 Other long term (current) drug therapy
CPT/HCPCS: 36415; 80053; 85025

== ENCOUNTER 2018-05-03 05:47 | Outpatient (CLI) | payer BC ==
[~2018-05-03] VITALS: Ht 167.6 cm; Wt 52.6 kg
[2018-05-03] MEDS ORDERED: [UNRECOGNIZED DRUG - CODE] PO (15:23)
[2018-05-03] MEDS ORDERED: CYAN100092 IJ (15:23)
[2018-05-03] MEDS ORDERED: CALC600T12 PO (15:25)
[2018-05-03] MEDS ORDERED: LETR2.5T5 PO (15:31)
== END 2018-05-03 15:28 | disposition home or self-care (01) ==
LOC: PREOP 05:47
PROVIDERS: ATTEND Internal Medicine
DX: Z01.818 Encounter for other preprocedural examination (principal)

== ENCOUNTER 2018-05-05 06:59 | Day surgery (SDC) | payer BC ==
--- NOTE | 2018-04-26 21:13 | HISTORY AND PHYSICAL ---
DATE OF SERVICE: COLONOSCOPY HISTORY AND PHYSICAL The patient was referred by Dr. Nat Gates. The patient was referred for screening colonoscopy. She had her first report of screening colonoscopy 10 years ago, at which time she reports no abnormality was noted per Dr. Lopez. She has been feeling well and voices no complaints. She has had no bowel habit change and has noted no bright red blood per rectum or melena. PAST MEDICAL HISTORY: Significant for ovarian cancer diagnosed at the age of 37, for which she underwent surgery and chemotherapy. She has been diagnosed with breast cancer at the age of 61 and there has been no evidence for recurrence of either cancer to date. For these reasons, she is deemed to be at slightly higher than average risk in regard to colon cancer. MEDICATIONS ON ADMISSION: Include: 1. Letrozole 2.5 mg daily. 2. Vitamin D3 2000 units daily. 3. Calcium 600 mg daily. 4. Prolia taken for osteoporosis, injection 60 mg q.6 months. 5. B12 for B12 deficiency, 1000 units IM monthly. 6. P.r.n. Claritin-D for nasal congestion. 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 FAMILY HISTORY: She is not aware of any family history for colon cancer. Both parents are living in their 90s. Mother is better than her age matched peers in regard to her health history. Father is currently on hospice secondary to Alzheimer's dementia and has history of paroxysmal atrial fibrillation. PAST SURGICAL HISTORY: She is status post left rotator cuff repair and for her cancers, right lumpectomy with radiation therapy and chemotherapy and for ovarian cancer, total abdominal hysterectomy and bilateral salpingo-oophorectomy. PHYSICAL EXAMINATION: GENERAL: Reveals a well-appearing, normal weight white female, in no acute distress. VITAL SIGNS: Blood pressure was 118/76 with a heart rate of 72 and regular. HEENT: Examination is unremarkable. She has a Mallampati class 2 oropharyngeal configuration. No pharyngeal erythema is noted. NECK: Revealed no JVD, adenopathy or bruits. CHEST: Clear to auscultation. CARDIOVASCULAR: Reveals a regular rate and rhythm without murmur, S3 or S4. ABDOMEN: Soft, supple with a well-healed lower midline surgical incision below the level of the navel. No mass or organomegaly, evidence for abdominal aortic aneurysm is noted to palpation. Bowel sounds are positive and no bruits are appreciated. EXTREMITIES: Reveal no cyanosis, clubbing or edema. ASSESSMENT: The patient was set up for screening colonoscopy on 05/05/2018. Prep instructions with Gabriel-prep kit were given and questions were answered. Thank you for the referral. Job ID: [id number] DocumentID: [id number] Dictated Date: 04/25/2018 15:30:40 Plastic Welding Machine Operator Date: 04/25/2018 16:07:41 Dictated By: MEKA ABURTO MD
[~2018-05-05] VITALS: Ht 167.6 cm; Wt 52.6 kg
[~2018-05-05 06:59] MED LIST changes: +CALC600T12 PO; +CYAN100092 IJ; +LETR2.5T5 PO; +[UNRECOGNIZED DRUG - CODE] PO
[2018-05-05] MEDS ORDERED: D5 LR IV SOLUTION 1,000 ML IV ONE (07:07)
[2018-05-05 07:10] VITALS: BP 115/79
[2018-05-05] MEDS ORDERED: D5 LR IV SOLUTION 1,000 ML IV STA (07:17)
[2018-05-05] MEDS ORDERED: fentaNYL INJECTION 100 MCG/2 ML AMP IVP ONE (07:30)
[2018-05-05] MEDS ORDERED: MIDAZOLAM 2 MG/2 ML (VERSED) VIAL IVP ONE (07:30)
[2018-05-05] MEDS ORDERED: LIDOCAINE JELLY 2% 6 ML SYRINGE MM PRN (07:30)
[2018-05-05] MEDS ORDERED: fentaNYL INJECTION 100 MCG/2 ML AMP ONE ×2 (07:48→08:06)
[2018-05-05] MEDS ORDERED: LIDOCAINE JELLY 2% 6 ML SYRINGE ONE (07:48)
[2018-05-05] MEDS ORDERED: MIDAZOLAM 2 MG/2 ML (VERSED) VIAL ONE ×3 (07:48)
[2018-05-05] MEDS ORDERED: MAGNESIUM 1 GM/100 ML IVPB 100 ML IV ONE (08:00)
[2018-05-05] MEDS ORDERED: ONDANSETRON 4 MG/2 ML (SDV) Z0FRAN ONE (08:26)
[2018-05-05] MEDS ORDERED: ONDANSETRON 4 MG/2 ML (SDV) Z0FRAN IVP ONE (08:30)
--- NOTE | 2018-05-05 08:37 | Pre-Op Note & Conscious Sedat ---
Pre-Operative Progress Note H&P Reviewed The H&P was reviewed, patient examined and no changes noted. Date H&P Reviewed: May 05, 2018 Time H&P Reviewed: 07:30 Conscious Sedation Pre-Proced ASA Score 2 For ASA 3 and 4: Consider anesthesia and medical clearance. Also, for patients with a history of failed moderate sedation consider anesthesia. Airway Lungs Heart ASA score ASA 1: a normal healthy patient ASA 2: a patient with a mild systemic disease (mid diabetes, controlled hypertension, obesity ASA 3: a patient with a severe systemic disease that limits activity (angina , COPD, prior Myocardial infarction) ASA 4: a patient with an incapacitating disease that is a constant threat to life (CHF, renal failure) ASA 5: a moribund patient not expected to survive 24 hrs. (ruptured aneurysm) ASA 6: a declared brain patient whose organs are being harvested. For emergent operations, add the letter E after the classification Mallampati Classification Grade 2 Sedation Plan Analgesia, Amnesia, Plan communicated to team members, Discussed options with patient/fam, Discussed risks with patient/fam The patient is an appropriate candidate to undergo the planned procedure, sedation, and anesthesia. The patient immediately re-assessed prior to indication. MEKA ABURTO MD May 05, 2018 08:37
[2018-05-05 08:45] VITALS: BP 122/70
[2018-05-05 09:15] VITALS: BP 112/69
[2018-05-05 09:35] VITALS: BP 112/69
--- NOTE | 2018-05-05 20:38 | OPERATIVE REPORT ---
DATE OF SERVICE: COLONOSCOPY SUMMARY INDICATION FOR THE PROCEDURE: Screening colonoscopy. The patient was placed in the left lateral decubitus position. Prior to undergoing colonoscopy, digital rectal evaluation was performed. Anal sphincter tone was normal and the perianal reflexes intact. No abnormalities were noted to digital inspection of anal canal or distal rectal vault. The colonoscope was inserted in the rectum and under direct visualization advanced to cecum. The cecum was identified by identification of ileocecal valve and cecal strap. Photographic documentation was obtained. Careful inspection was made as the colonoscope was withdrawn. FINDINGS: There was no evidence for internal or external hemorrhoids. The rectum, sigmoid colon, descending colon, splenic flexure, transverse colon, hepatic flexure, ascending colon and cecum were unremarkable without evidence for diverticular disease, neoplasia or other abnormality. ASSESSMENT: Normal colonoscopy to the cecum. The patient was given a gram of magnesium as the patient had a lot of cramping the night before likely induced by the prep. This was predominantly lower extremity cramping. They were still ongoing prior to magnesium, but has ceased after infusion. Would advocate consideration for repeat screening colonoscopy in 10 years. Job ID: [id number] DocumentID: [id number] Dictated Date: 05/05/2018 10:38:30 Social Economist Date: 05/05/2018 20:37:36 Dictated By: MEKA ABURTO MD [facility]
== END 2018-05-05 09:35 | disposition home or self-care (01) ==
LOC: ENDO 06:59
PROVIDERS: ATTEND Internal Medicine
DX: Z12.11 Encounter for screening for malignant neoplasm of colon (principal); R25.2 Cramp and spasm; M81.0 Age-related osteoporosis without current pathological fracture; E53.8 Deficiency of other specified B group vitamins; Z85.3 Personal history of malignant neoplasm of breast; Z85.43 Personal history of malignant neoplasm of ovary; Z92.21 Personal history of antineoplastic chemotherapy; Z79.899 Other long term (current) drug therapy

== ENCOUNTER → 2018-08-03 | Outpatient (CLI) | payer BC ==
[2018-08-03 15:08] LABS: BASOPHILS % (AUTO) 1 % (0-10); EOSINOPHILS # (AUTO) 0.1 10^3/uL (0.0-0.3); EOSINOPHILS % (AUTO) 3 % (0-10); HEMATOCRIT 36 % (35-52); HEMOGLOBIN 11.8 G/DL (11.5-16.0); LYMPHOCYTES # (AUTO) 0.9 X 10^3 (1.0-4.0); LYMPHOCYTES % (AUTO) 25 % (12-44); MEAN CORPUSCULAR HEMOGLOBIN 29 PG (25-34); MEAN CORPUSCULAR HGB CONC 33 G/DL (32-36); MEAN CORPUSCULAR VOLUME 88 FL (80-99); MEAN PLATELET VOLUME 9.1 FL (7.4-10.4); MONOCYTES # (AUTO) 0.3 X 10^3 (0.0-1.0); MONOCYTES % (AUTO) 8 % (0-12); NEUTROPHILS # (AUTO) 2.3 X 10^3 (1.8-7.8); NEUTROPHILS % (AUTO) 64 % (42-75); PLATELET COUNT 266 10^3/uL (130-400); RED CELL DISTRIBUTION WIDTH 13.1 % (10.0-14.5); WHITE BLOOD COUNT 3.6 10^3/uL (4.3-11.0)
[2018-08-03 15:28] LABS: ALANINE AMINOTRANSFERASE 15 U/L (0-55); ALBUMIN 4.3 GM/DL (3.2-4.5); ALKALINE PHOSPHATASE 96 U/L (40-136); BILIRUBIN,TOTAL 0.2 MG/DL (0.1-1.0); BUN/CREATININE RATIO 17; CALCIUM 10.1 MG/DL (8.5-10.1); CARBON DIOXIDE 27 MMOL/L (21-32); CHLORIDE 104 MMOL/L (98-107); CREATININE SERUM 0.89 MG/DL (0.60-1.30); GFR ESTIMATED > 60; GLUCOSE 81 MG/DL (70-105); POTASSIUM 3.8 MMOL/L (3.6-5.0); SODIUM 140 MMOL/L (135-145); TOTAL PROTEIN 6.9 GM/DL (6.4-8.2)
== END ==
LOC: EDSTATUS 07-14 14:51 → ONC 14:53
PROVIDERS: ATTEND Internal Medicine Hematology & Oncology
DX: C50.511 Malignant neoplasm of lower-outer quadrant of right female breast (principal); C77.3 Secondary and unspecified malignant neoplasm of axilla and upper limb lymph nodes; Z85.43 Personal history of malignant neoplasm of ovary; E53.8 Deficiency of other specified B group vitamins; M81.0 Age-related osteoporosis without current pathological fracture; Z17.0 Estrogen receptor positive status [ER+]; Z90.710 Acquired absence of both cervix and uterus; Z79.811 Long term (current) use of aromatase inhibitors; Z79.899 Other long term (current) drug therapy
CPT/HCPCS: 36415; 80053; 85025; 99213

== ENCOUNTER → 2018-09-01 | Outpatient (CLI) | payer BC ==
[~2018-09-01] VITALS: Ht 167.6 cm; Wt 52.6 kg
[~2018-09-01] MED LIST changes: +DENOSUMAB 60 MG/1 ML (PROLIA) SQ NR
[2018-09-01 13:53] VITALS: BP 110/66
== END ==
LOC: SDC 13:40
PROVIDERS: ATTEND Family Medicine
DX: M81.0 Age-related osteoporosis without current pathological fracture (principal)
CPT/HCPCS: 96372

== ENCOUNTER → 2018-11-03 | Outpatient (CLI) | payer BC ==
[~2018-11-03] MED LIST changes: -DENOSUMAB 60 MG/1 ML (PROLIA) SQ NR
== END ==
LOC: ONC 09:06
PROVIDERS: ATTEND Internal Medicine Hematology & Oncology
DX: C50.511 Malignant neoplasm of lower-outer quadrant of right female breast (principal); C77.3 Secondary and unspecified malignant neoplasm of axilla and upper limb lymph nodes; Z85.43 Personal history of malignant neoplasm of ovary; E53.8 Deficiency of other specified B group vitamins; M81.0 Age-related osteoporosis without current pathological fracture; Z17.0 Estrogen receptor positive status [ER+]; Z90.710 Acquired absence of both cervix and uterus; Z79.811 Long term (current) use of aromatase inhibitors; Z79.899 Other long term (current) drug therapy
CPT/HCPCS: 99213

== ENCOUNTER → 2018-11-03 | Outpatient (CLI) | payer BC ==
[2018-11-03 09:35] LABS: BASOPHILS % (AUTO) 1 % (0-10); EOSINOPHILS # (AUTO) 0.2 10^3/uL (0.0-0.3); EOSINOPHILS % (AUTO) 5 % (0-10); HEMATOCRIT 41 % (35-52); HEMOGLOBIN 13.2 G/DL (11.5-16.0); LYMPHOCYTES % (AUTO) 24 % (12-44); MEAN CORPUSCULAR HEMOGLOBIN 29 PG (25-34); MEAN CORPUSCULAR HGB CONC 32 G/DL (32-36); MEAN CORPUSCULAR VOLUME 88 FL (80-99); MEAN PLATELET VOLUME 9.1 FL (7.4-10.4); MONOCYTES # (AUTO) 0.3 X 10^3 (0.0-1.0); MONOCYTES % (AUTO) 7 % (0-12); NEUTROPHILS # (AUTO) 2.6 X 10^3 (1.8-7.8); NEUTROPHILS % (AUTO) 63 % (42-75); PLATELET COUNT 290 10^3/uL (130-400); RED CELL DISTRIBUTION WIDTH 13.2 % (10.0-14.5); WHITE BLOOD COUNT 4.1 10^3/uL (4.3-11.0)
[2018-11-03 09:51] LABS: ALANINE AMINOTRANSFERASE 12 U/L (0-55); ALBUMIN 4.9 GM/DL (3.2-4.5); ALKALINE PHOSPHATASE 74 U/L (40-136); BILIRUBIN,TOTAL 0.5 MG/DL (0.1-1.0); BUN/CREATININE RATIO 16; CALCIUM 10.1 MG/DL (8.5-10.1); CARBON DIOXIDE 25 MMOL/L (21-32); CHLORIDE 101 MMOL/L (98-107); CHOLESTEROL 211 MG/DL (< 200); CREATININE SERUM 1.02 MG/DL (0.60-1.30); GFR ESTIMATED 55; GLUCOSE 84 MG/DL (70-105); HDL CHOLESTEROL 63 MG/DL (40-60); POTASSIUM 3.6 MMOL/L (3.6-5.0); SODIUM 138 MMOL/L (135-145); TOTAL PROTEIN 7.9 GM/DL (6.4-8.2); TRIGLYCERIDES 108 MG/DL (<150); VLDL CHOLESTEROL 22 MG/DL (5-40)
== END ==
LOC: LAB 09:15
PROVIDERS: ATTEND Family Medicine
DX: Z00.00 Encounter for general adult medical examination without abnormal findings (principal); E53.8 Deficiency of other specified B group vitamins; M81.0 Age-related osteoporosis without current pathological fracture; Z79.899 Other long term (current) drug therapy
CPT/HCPCS: 36415; 80053; 80061; 82306; 82607; 84443; 85025

== ENCOUNTER → 2018-12-26 | Outpatient (CLI) | payer BC ==
--- NOTE | 2018-12-26 16:49 | Diagnostic Imaging Report ---
INDICATION: Postmenopausal female. COMPARISON: 12/02/2016. FINDINGS: AP Spine L1-L4: [BMD (g/cm2): 1.034] [T-Score: -1.4] [Z-Score: 0.5] [BMD Previous: 1.034] [BMD % Change: 0.0] LT Hip Neck: [BMD (g/cm2): 0.727] [T-Score: -2.2] [Z-Score: -0.6] LT Hip Total: [BMD (g/cm2):0.697] [T-Score:-2.5] [Z-Score: -1.1] [BMD Previous: 0.703] [BMD % Change: -0.9] RT Hip Neck: [BMD (g/cm2):0.719] [T-Score:-2.3] [Z-Score:-0.7] RT Hip Total: [BMD (g/cm2):0.739] [T-score:-2.1] [Z-Score:-0.8] [BMD Previous:0.750] [BMD % Change:-1.5] *Indicates significant change from prior examination based on 95% confidence level. World Health Organization criteria for BMD interpretation classify patients as Normal (T-score at or above -1.0), Osteopenic (T-score between -1.0 and -2.5) or Osteoporotic (T-score at or below -2.5). LIMITATIONS AND MODIFICATION: None. FRACTURE RISK (FRAX SCORE): Osteoporosis. IMPRESSION: 1. Osteoporosis. 2. No statistically significant change in bone mineral density since prior examination. 3. See below National Osteoporosis Foundation guidelines on when to potentially initiate pharmacologic therapy. Based on the National Osteoporosis Foundation Guidelines, pharmacologic treatment should be initiated in any of the following, unless clinical conditions suggest otherwise: * Any patient with prior fragility fracture of the hip or vertebrae. A spine fracture indicates 5X risk for subsequent spine fracture and 2X risk for subsequent hip fracture. * Osteoporosis (T-score <-2.5). * Postmenopausal women and men age 50 and older with low bone mass/osteopenia (T-score between -1.0 and -2.5) by DXA and 10-year major osteoporotic fracture greater than 20% or a 10-year probability of hip fracture greater than 3%. These fracture risks are supplied above in the FRAX score, if applicable. * Clinician judgement and/or patient preferences may indicate treatment for people with 10-year fracture probabilities above or below these levels. Dictated by: Dictated on workstation # [id number]
== END ==
LOC: RAD 11:37
PROVIDERS: ATTEND Internal Medicine Hematology & Oncology
DX: Z51.81 Encounter for therapeutic drug level monitoring (principal); M81.0 Age-related osteoporosis without current pathological fracture; Z85.43 Personal history of malignant neoplasm of ovary
CPT/HCPCS: 77080

== ENCOUNTER → 2019-01-23 | Outpatient (CLI) | payer BC | LOC: ONC 12:31 | PROVIDERS: ATTEND Internal Medicine Hematology & Oncology | DX: C50.511 Malignant neoplasm of lower-outer quadrant of right female breast (principal); C77.3 Secondary and unspecified malignant neoplasm of axilla and upper limb lymph nodes; Z85.43 Personal history of malignant neoplasm of ovary; E53.8 Deficiency of other specified B group vitamins; M81.0 Age-related osteoporosis without current pathological fracture; Z17.0 Estrogen receptor positive status [ER+]; Z90.710 Acquired absence of both cervix and uterus; Z79.811 Long term (current) use of aromatase inhibitors; Z79.899 Other long term (current) drug therapy | CPT/HCPCS: 99213 ==

== ENCOUNTER 2019-02-23 14:38 | Outpatient (RCR) | payer BC ==
[2019-02-23] MEDS ORDERED: DENOSUMAB 60 MG/1 ML (PROLIA) CANCER CTR SQ SCH (14:45)
== END 2019-05-24 | disposition home or self-care (01) ==
LOC: ONC 14:38
PROVIDERS: ATTEND Internal Medicine Hematology & Oncology
DX: C50.511 Malignant neoplasm of lower-outer quadrant of right female breast (principal); C77.3 Secondary and unspecified malignant neoplasm of axilla and upper limb lymph nodes; Z85.43 Personal history of malignant neoplasm of ovary; E53.8 Deficiency of other specified B group vitamins; M81.0 Age-related osteoporosis without current pathological fracture; Z17.0 Estrogen receptor positive status [ER+]; Z90.710 Acquired absence of both cervix and uterus; Z79.811 Long term (current) use of aromatase inhibitors; Z79.899 Other long term (current) drug therapy
CPT/HCPCS: 96372

== ENCOUNTER → 2019-03-30 | Outpatient (CLI) | payer BC ==
--- NOTE | 2019-03-30 15:17 | Diagnostic Imaging Report ---
INDICATION: Right breast carcinoma. Correlation made with prior mammograms 03/23/2018 and 02/25/2017. 2-D and 3-D bilateral diagnostic mammography was performed with CAD. Both breasts remain heterogeneously dense, limiting the sensitivity of mammography. Lumpectomy changes inferior right breast are again noted. Lumpectomy site appears stable. There are benign calcifications bilaterally. There appears to be a clip in the upper outer left breast. No new mass or malignant-appearing microcalcifications are seen. Axillae are unremarkable. IMPRESSION: BI-RADS Category 2 No mammographic features suspicious for malignancy are identified. ACR BI-RADS Category 2: Benign findings. Result letter will be mailed to the patient. Note: At least 10% of breast cancer is not imaged by mammography. Dictated by: Dictated on workstation # [id number]
== END ==
LOC: RAD 13:05
PROVIDERS: ATTEND Internal Medicine Hematology & Oncology
DX: C50.911 Malignant neoplasm of unspecified site of right female breast (principal)
CPT/HCPCS: 77066

== ENCOUNTER → 2019-09-19 | Outpatient (CLI) | payer OTHER ==
[~2019-09-19] MED LIST changes: +DENOSUMAB 60 MG/1 ML (PROLIA) CANCER CTR SQ SCH; -LETR2.5T5 PO; +LETR2.5T6 PO
== END ==
LOC: ONC 08:53
PROVIDERS: ATTEND Internal Medicine Hematology & Oncology
DX: C50.511 Malignant neoplasm of lower-outer quadrant of right female breast (principal); C77.3 Secondary and unspecified malignant neoplasm of axilla and upper limb lymph nodes; Z85.43 Personal history of malignant neoplasm of ovary; E53.8 Deficiency of other specified B group vitamins; M81.0 Age-related osteoporosis without current pathological fracture; Z17.0 Estrogen receptor positive status [ER+]; Z90.710 Acquired absence of both cervix and uterus; Z79.811 Long term (current) use of aromatase inhibitors; Z79.899 Other long term (current) drug therapy
CPT/HCPCS: 96372; 99213

== ENCOUNTER → 2020-03-06 | Outpatient (CLI) | payer OTHER ==
[~2020-03-06] MED LIST changes: -CALC600T12 PO; +CLC600T PO
[2020-03-06 09:38] LABS: BASOPHILS % (AUTO) 1 % (0-10); EOSINOPHILS # (AUTO) 0.2 10^3/uL (0.0-0.3); EOSINOPHILS % (AUTO) 6 % (0-10); HEMATOCRIT 40 % (35-52); HEMOGLOBIN 12.6 g/dL (11.5-16.0); LYMPHOCYTES # (AUTO) 1.2 10^3/uL (1.0-4.0); LYMPHOCYTES % (AUTO) 28 % (12-44); MEAN CORPUSCULAR HEMOGLOBIN 29 pg (25-34); MEAN CORPUSCULAR HGB CONC 32 g/dL (32-36); MEAN CORPUSCULAR VOLUME 91 fL (80-99); MEAN PLATELET VOLUME 9.3 fL (9.0-12.2); MONOCYTES # (AUTO) 0.3 10^3/uL (0.0-1.0); MONOCYTES % (AUTO) 7 % (0-12); NEUTROPHILS # (AUTO) 2.4 10^3/uL (1.8-7.8); NEUTROPHILS % (AUTO) 58 % (42-75); PLATELET COUNT 296 10^3/uL (130-400); WHITE BLOOD COUNT 4.1 10^3/uL (4.3-11.0)
[2020-03-06 10:00] LABS: ALBUMIN 4.5 GM/DL (3.2-4.5); BILIRUBIN,TOTAL 0.4 MG/DL (0.1-1.0); CALCIUM 9.7 MG/DL (8.5-10.1); CREATININE SERUM 1.1 MG/DL (0.60-1.30); POTASSIUM 3.7 MMOL/L (3.6-5.0); TOTAL PROTEIN 7.3 GM/DL (6.4-8.2)
== END ==
LOC: ONC 09:16
PROVIDERS: ATTEND Internal Medicine Hematology & Oncology
DX: Z51.81 Encounter for therapeutic drug level monitoring (principal); C50.511 Malignant neoplasm of lower-outer quadrant of right female breast; M81.0 Age-related osteoporosis without current pathological fracture; Z92.3 Personal history of irradiation; Z85.43 Personal history of malignant neoplasm of ovary
CPT/HCPCS: 80053; 82306; 85025; 96372; G0463

== ENCOUNTER → 2020-03-31 | Outpatient (CLI) | payer MEDICARE ==
[~2020-03-31] MED LIST changes: -DENOSUMAB 60 MG/1 ML (PROLIA) CANCER CTR SQ SCH
--- NOTE | 2020-03-31 15:24 | Diagnostic Imaging Report ---
EXAMINATION: Bilateral mammograms. INDICATION: History of breast cancer. COMPARISON: 03/30/2019, 03/23/2018, and 02/15/2017. TECHNIQUE: Digital diagnostic mammography was performed bilaterally with a Computer Aided Detection (CAD) system. FINDINGS: The breast tissue is heterogeneously dense bilaterally. There are benign type calcifications. There are post therapeutic changes in the right breast. There is no dominant mass, spiculated lesion, or suspicious calcification identified. Bilateral breast ultrasound was also performed which was negative. IMPRESSION: Benign findings as above. ACR BI-RADS Category 2: Benign findings. Result letter will be mailed to the patient. Note: At least 10% of breast cancer is not imaged by mammography. Dictated by: Dictated on workstation # [id number]
--- NOTE | 2020-04-01 08:52 | Diagnostic Imaging Report ---
INDICATION: Screening TECHNIQUE: Multiple real-time grayscale images were obtained of both breasts in various projections. FINDINGS: There are surgical clips in the infra areolar region of the right breast. There is however no solid mass or suspicious lesion in either breast. There also appears to be a clip in the upper outer aspect left breast. IMPRESSION: Category 2 benign. ACR BI-RADS Category 2: Benign findings. Dictated by: Dictated on workstation # [id number]
== END ==
LOC: RAD 14:15
PROVIDERS: ATTEND Nurse Practitioner Adult Health
DX: Z12.31 Encounter for screening mammogram for malignant neoplasm of breast (principal); C50.919 Malignant neoplasm of unspecified site of unspecified female breast
CPT/HCPCS: 76641; 77066; G0279; 77062

== ENCOUNTER → 2020-09-04 | Outpatient (CLI) | payer MEDICARE ==
[~2020-09-04] MED LIST changes: +CALC600T91 PO; -CLC600T PO; +DENOSUMAB 60 MG/1 ML (PROLIA) CANCER CTR SQ SCH
[2020-09-04 10:03] LABS: BASOPHILS # (AUTO) 0.1 10^3/uL (0.0-0.1); BASOPHILS % (AUTO) 1 % (0-10); EOSINOPHILS # (AUTO) 0.2 10^3/uL (0.0-0.3); EOSINOPHILS % (AUTO) 5 % (0-10); HEMATOCRIT 42 % (35-52); HEMOGLOBIN 13.3 g/dL (11.5-16.0); LYMPHOCYTES % (AUTO) 22 % (12-44); MEAN CORPUSCULAR HEMOGLOBIN 29 pg (25-34); MEAN CORPUSCULAR HGB CONC 32 g/dL (32-36); MEAN CORPUSCULAR VOLUME 92 fL (80-99); MEAN PLATELET VOLUME 9.3 fL (9.0-12.2); MONOCYTES # (AUTO) 0.4 10^3/uL (0.0-1.0); MONOCYTES % (AUTO) 9 % (0-12); NEUTROPHILS # (AUTO) 2.9 10^3/uL (1.8-7.8); NEUTROPHILS % (AUTO) 64 % (42-75); PLATELET COUNT 259 10^3/uL (130-400); WHITE BLOOD COUNT 4.6 10^3/uL (4.3-11.0)
[2020-09-04 10:20] LABS: ALBUMIN 4.4 GM/DL (3.2-4.5); BILIRUBIN,TOTAL 0.4 MG/DL (0.1-1.0); CALCIUM 9.7 MG/DL (8.5-10.1); CREATININE SERUM 1.03 MG/DL (0.60-1.30); POTASSIUM 4.2 MMOL/L (3.6-5.0); TOTAL PROTEIN 7.4 GM/DL (6.4-8.2)
== END ==
LOC: ONC 09:49
PROVIDERS: ATTEND Internal Medicine Hematology & Oncology
DX: C50.511 Malignant neoplasm of lower-outer quadrant of right female breast (principal); M81.0 Age-related osteoporosis without current pathological fracture; D64.9 Anemia, unspecified; Z79.811 Long term (current) use of aromatase inhibitors; Z85.43 Personal history of malignant neoplasm of ovary; Z90.11 Acquired absence of right breast and nipple; Z92.21 Personal history of antineoplastic chemotherapy; Z98.890 Other specified postprocedural states; Z90.79 Acquired absence of other genital organ(s); Z92.3 Personal history of irradiation
CPT/HCPCS: 80053; 85025; 96372; G0463

== ENCOUNTER → 2020-12-30 | Outpatient (CLI) | payer MEDICARE ==
[~2020-12-30] MED LIST changes: -DENOSUMAB 60 MG/1 ML (PROLIA) CANCER CTR SQ SCH
--- NOTE | 2020-12-30 10:00 | Diagnostic Imaging Report ---
INDICATION: Postmenopausal state. COMPARISON: 12/26/2018 FINDINGS: AP Spine L2-L4: [BMD (g/cm2): 1.011] [T-Score: -1.6] [Z-Score: 0.3] [BMD Previous: 10.34] [BMD % Change: -2.2] LT Hip Neck: [BMD (g/cm2): 0.702] [T-Score: -2.4] [Z-Score: -0.7] LT Hip Total: [BMD (g/cm2):0.734] [T-Score:-2.2] [Z-Score: -0.7] [BMD Previous: 0.697] [BMD % Change: 5.3] RT Hip Neck: [BMD (g/cm2):0.720] [T-Score:-2.3] [Z-Score:-0.6] RT Hip Total: [BMD (g/cm2):0.781] [T-score:-1.8] [Z-Score:-0.4] [BMD Previous:0.739] [BMD % Change:5.7] *Indicates significant change from prior examination based on 95% confidence level. World Health Organization criteria for BMD interpretation classify patients as Normal (T-score at or above -1.0), Osteopenic (T-score between -1.0 and -2.5) or Osteoporotic (T-score at or below -2.5). LIMITATIONS AND MODIFICATION: None. FRACTURE RISK (FRAX SCORE): The ten year probability of (%): Major Osteoporotic Fracture: [11.8] Hip Fracture: [2.6] IMPRESSION: 1. Osteopenia (Low bone mass). 2. No significant change in bone mineral density since prior examination. 3. See below National Osteoporosis Foundation guidelines on when to potentially initiate pharmacologic therapy. Based on the National Osteoporosis Foundation Guidelines, pharmacologic treatment should be initiated in any of the following, unless clinical conditions suggest otherwise: * Any patient with prior fragility fracture of the hip or vertebrae. A spine fracture indicates 5X risk for subsequent spine fracture and 2X risk for subsequent hip fracture. * Osteoporosis (T-score <-2.5). * Postmenopausal women and men age 50 and older with low bone mass/osteopenia (T-score between -1.0 and -2.5) by DXA and 10-year major osteoporotic fracture greater than 20% or a 10-year probability of hip fracture greater than 3%. These fracture risks are supplied above in the FRAX score, if applicable. * Clinician judgement and/or patient preferences may indicate treatment for people with 10-year fracture probabilities above or below these levels. Dictated by: Dictated on workstation # [id number]
== END ==
PROVIDERS: ATTEND Internal Medicine Hematology & Oncology
DX: M85.80 Other specified disorders of bone density and structure, unspecified site (principal); C50.919 Malignant neoplasm of unspecified site of unspecified female breast; Z79.811 Long term (current) use of aromatase inhibitors; Z78.0 Asymptomatic menopausal state
CPT/HCPCS: 77080

== ENCOUNTER → 2021-03-06 | Outpatient (CLI) | payer MEDICARE ==
[~2021-03-06] MED LIST changes: +CATHETER FLUSH 10 ML SYR IV PRN; +HOLD METFORMIN - RECEIVED CONTRAST 20 ML VIAL IV SCH; +IOHEXOL 350 MG/ML 100 ML (OMNIPAQUE 350) VIAL IV ONE; +NS 100 ML (IVPB) BAG IV ONE
--- NOTE | 2021-03-07 13:14 | Diagnostic Imaging Report ---
PROCEDURE: CT abdomen and pelvis with and without contrast. TECHNIQUE: Precontrast acquisitions were acquired through the abdomen and pelvis. Multiple contiguous axial images were obtained through the abdomen and pelvis after the administration of intravenous contrast. Auto Exposure Controls were utilized during the CT exam to meet ALARA standards for radiation dose reduction. INDICATION: 65-year-old female, abdominal pain for a few weeks. History of breast cancer. CORRELATION STUDY: 08/11/2010 FINDINGS: LOWER THORAX: Clear. LIVER: Slightly heterogeneous attenuation without focal lesion. GALLBLADDER: Cholecystectomy. No significant bile duct dilatation. SPLEEN: Unremarkable. PANCREAS: Very slight loss of definition of the pancreatic sulci. Otherwise no significant peripancreatic inflammatory change. ADRENAL GLANDS: Unremarkable. KIDNEYS: Distortion of the contour and enhancement at the anterior inferior pole of the left kidney concerning for mass, approximately 2 x 1.8 x 1.9 cm. Right kidney unremarkable. No hydronephrosis or obstruction. ABDOMINAL AORTA: Scattered mild wall calcification. Left renal vein and inferior vena cava unremarkable. Surgical clips along the right aortocaval region as well as along the bilateral pelvic sidewalls compatible with probable lymph node dissection. No pathologically enlarged aortocaval and/or pelvic lymphadenopathy. GASTROINTESTINAL TRACT: Stomach is collapsed with resultant gastric wall thickening. A few mildly prominent fluid filled loops and thickened small bowel segments could reflect nonspecific enteritis. No obstruction. Colon is largely decompressed, likely accounting for some areas of colonic wall thickening. No significant abdominal ascites. URINARY BLADDER: Decompressed. REPRODUCTIVE: Hysterectomy. OSSEOUS STRUCTURES: Leftward curvature of the lumbar spine. Several scattered small sclerotic foci particularly in the left hemipelvis are present. Currently indeterminate but do appear to be changed from prior. OTHER: None. IMPRESSION: 1. A few prominent loops of small bowel with nonspecific wall thickening could be reflective of mild enteritis. No obstructive feature. 2. Development of left renal mass concerning for probable renal cell malignancy until proven otherwise. No suggestion of pathologically enlarged aortocaval lymph nodes. 3. A few small sclerotic bony lesions, currently nonspecific. Small bone islands, benign process could account for this. Sclerotic metastasis is not excluded at this time. Left a message for a return call with Ms. Haynes at 9:36 AM 02/25/2021/cb Report given to LANETTE Woodall at 1:13 PM 03/07/2021/jacob Dictated by: Dictated on workstation # [id number]
== END ==
LOC: RAD 11:45
PROVIDERS: ATTEND Nurse Practitioner Adult Health
DX: N28.89 Other specified disorders of kidney and ureter (principal); M89.9 Disorder of bone, unspecified; Z85.3 Personal history of malignant neoplasm of breast
CPT/HCPCS: 74178

== ENCOUNTER → 2021-03-07 | Outpatient (CLI) | payer MEDICARE ==
[~2021-03-07] MED LIST changes: -CATHETER FLUSH 10 ML SYR IV PRN; -HOLD METFORMIN - RECEIVED CONTRAST 20 ML VIAL IV SCH; -IOHEXOL 350 MG/ML 100 ML (OMNIPAQUE 350) VIAL IV ONE; -NS 100 ML (IVPB) BAG IV ONE
== END ==
LOC: LABNPT 09:00
PROVIDERS: ATTEND Nurse Practitioner Adult Health
DX: R19.7 Diarrhea, unspecified (principal)
CPT/HCPCS: 87324; 87328; 87329; 87449

== ENCOUNTER → 2021-04-01 | Outpatient (CLI) | payer MEDICARE ==
--- NOTE | 2021-04-01 10:54 | Diagnostic Imaging Report ---
Indication: Routine screening Comparison is made with prior mammogram from 03/31/2020 and 03/30/2019. 2-D and 3-D bilateral screening mammography was performed with CAD. Both breast are heterogeneously dense, limiting the sensitivity of mammography. Multiple surgical clips in the inferior right breast are again noted. There is a marker in the left breast as well. Benign nodular far posterior inferior left breast is stable. No new mass or malignant-appearing microcalcifications are seen. Axillae are unremarkable. IMPRESSION: BI-RADS Category 2 No mammographic features suspicious for malignancy are identified. ACR BI-RADS Category 2: Benign findings. Result letter will be mailed to the patient. Note: At least 10% of breast cancer is not imaged by mammography. Dictated by: Dictated on workstation # [id number]
== END ==
LOC: RAD 10:15
PROVIDERS: ATTEND Nurse Practitioner Adult Health
DX: Z12.31 Encounter for screening mammogram for malignant neoplasm of breast (principal)
CPT/HCPCS: 77063; 77067

== ENCOUNTER 2021-04-16 09:24 | Outpatient (RCR) | payer MEDICARE ==
[2021-02-23 15:38] LABS: BASOPHILS % (AUTO) 1 % (0-10); EOSINOPHILS # (AUTO) 0.2 10^3/uL (0.0-0.3); EOSINOPHILS % (AUTO) 4 % (0-10); HEMATOCRIT 42 % (35-52); HEMOGLOBIN 13.4 g/dL (11.5-16.0); LYMPHOCYTES # (AUTO) 0.9 X 10^3 (1.0-4.0); LYMPHOCYTES % (AUTO) 19 % (12-44); MEAN CORPUSCULAR HEMOGLOBIN 29 pg (25-34); MEAN CORPUSCULAR HGB CONC 32 g/dL (32-36); MEAN CORPUSCULAR VOLUME 90 fL (80-99); MEAN PLATELET VOLUME 9.1 fL (9.0-12.2); MONOCYTES # (AUTO) 0.4 X 10^3 (0.0-1.0); MONOCYTES % (AUTO) 8 % (0-12); NEUTROPHILS # (AUTO) 3.1 X 10^3 (1.8-7.8); NEUTROPHILS % (AUTO) 68 % (42-75); PLATELET COUNT 263 10^3/uL (130-400); WHITE BLOOD COUNT 4.6 10^3/uL (4.3-11.0)
[2021-02-23 15:58] LABS: ALBUMIN 4.4 GM/DL (3.2-4.5); BILIRUBIN,TOTAL 0.2 MG/DL (0.1-1.0); CREATININE SERUM 1.06 MG/DL (0.60-1.30); POTASSIUM 3.7 MMOL/L (3.6-5.0); TOTAL PROTEIN 7.7 GM/DL (6.4-8.2)
[2021-03-05 09:59] LABS: BASOPHILS # (AUTO) 0.1 10^3/uL (0.0-0.1); BASOPHILS % (AUTO) 1 % (0-10); EOSINOPHILS # (AUTO) 0.2 10^3/uL (0.0-0.3); EOSINOPHILS % (AUTO) 4 % (0-10); HEMATOCRIT 41 % (35-52); HEMOGLOBIN 13.4 g/dL (11.5-16.0); LYMPHOCYTES # (AUTO) 0.8 10^3/uL (1.0-4.0); LYMPHOCYTES % (AUTO) 17 % (12-44); MEAN CORPUSCULAR HEMOGLOBIN 29 pg (25-34); MEAN CORPUSCULAR HGB CONC 32 g/dL (32-36); MEAN CORPUSCULAR VOLUME 90 fL (80-99); MEAN PLATELET VOLUME 9.2 fL (9.0-12.2); MONOCYTES # (AUTO) 0.4 10^3/uL (0.0-1.0); MONOCYTES % (AUTO) 8 % (0-12); NEUTROPHILS # (AUTO) 3.3 10^3/uL (1.8-7.8); NEUTROPHILS % (AUTO) 69 % (42-75); PLATELET COUNT 293 10^3/uL (130-400); WHITE BLOOD COUNT 4.8 10^3/uL (4.3-11.0)
[~2021-04-16 09:24] MED LIST changes: +DENOSUMAB 60 MG/1 ML (PROLIA) CANCER CTR SQ SCH
== END 2021-05-08 | disposition home or self-care (01) ==
LOC: ONC 09:24
PROVIDERS: ATTEND Internal Medicine Hematology & Oncology
DX: C50.511 Malignant neoplasm of lower-outer quadrant of right female breast (principal); M81.0 Age-related osteoporosis without current pathological fracture; Z85.43 Personal history of malignant neoplasm of ovary; Z79.811 Long term (current) use of aromatase inhibitors; Z92.3 Personal history of irradiation; Z90.11 Acquired absence of right breast and nipple; Z92.21 Personal history of antineoplastic chemotherapy
CPT/HCPCS: 80053; 82306; 85025; 96372; 99213

== ENCOUNTER → 2021-04-17 | Outpatient (CLI) | payer MEDICARE ==
[~2021-04-17] MED LIST changes: -DENOSUMAB 60 MG/1 ML (PROLIA) CANCER CTR SQ SCH
== END ==
LOC: LABNPT 05:55
PROVIDERS: ATTEND Urology
DX: Z01.812 Encounter for preprocedural laboratory examination (principal); Z20.822 Contact with and (suspected) exposure to COVID-19
CPT/HCPCS: 87635

== ENCOUNTER → 2022-04-06 | Outpatient (CLI) | payer MEDICARE ==
--- NOTE | 2022-04-07 08:44 | Diagnostic Imaging Report ---
INDICATION: 3-D bilateral screening mammogram with CAD. CAD is utilized. The current study was also evaluated with a Computer Aided Detection (CAD) system. This study was compared to the prior exams of 04/01/2021, 03/31/2020 and 03/30/2019. At this time there are no current complaints. By history patient did have a lumpectomy for carcinoma on the right in 2017. The surgical clips in the 6 o'clock position right breast seen previously are again evident and no different. There is no sign of recurrent malignancy. The fibroglandular tissue in each breast is heterogeneously dense. This does limit the sensitivity of this exam. When compared to the previous study however there has been no significant change. There is no primary or secondary sign of malignancy noted. The stereotactic clip in the left breast noted on the prior exam is again visualized. IMPRESSION: 1. The postsurgical changes involving the right breast appear stable. There is no evidence for recurrent malignancy in the lumpectomy site. 2. There is no primary or secondary sign of malignancy noted otherwise. ACR BI-RADS Category 1: Negative. Result letter will be mailed to the patient. Note: At least 10% of breast cancer is not imaged by mammography. Dictated by: Dictated on workstation # [id number]
== END ==
LOC: RAD 09:16
PROVIDERS: ATTEND Internal Medicine Hematology & Oncology
DX: Z12.31 Encounter for screening mammogram for malignant neoplasm of breast (principal)
CPT/HCPCS: 77063; 77067

== ENCOUNTER 2022-10-31 11:08 | Emergency (ER) | payer MEDICARE ==
[~2022-10-31] VITALS: Ht 167 cm; Wt 60.0 kg
--- NOTE | 2022-10-31 11:47 | ED Integumentary General ---
General Chief Complaint: Bite-Animal/Human/Insect Stated Complaint: SPIDER BITE Nursing Triage Note: PT STATES WAS BITTEN BY SPIDER ON TUESDAY ON BACK OF R CALF OF LEG. STATES GETTING WORSE. PT STARTED ON DOXYCLINE ON TUESDAY. RATES PAIN 11/15 Source: patient Exam Limitations: no limitations History of Present Illness Date Seen by Provider: Oct 31, 2022 Time Seen by Provider: 11:30 Initial Comments 67-year-old female presents to the ER with reports of a possible spider bite to her right calf. She states that early morning while she was sleeping she felt something bite her leg. She states she thinks was a spider, did not see the spider though. She states that bite became worse on Tuesday, she saw a provider who prescribed her doxycycline. She states that the area continues to get worse and the pain extends to most of her lower leg. She denies fevers, abdominal pain, nausea, vomiting, body aches. Allergies and Home Medications Allergies Coded Allergies: Sulfa (Sulfonamide Antibiotics) (Verified Allergy, Mild, 06/06/15) Patient Home Medication List Home Medication List Reviewed: Yes Calcium Carbonate (Calcium) 600 Mg Tablet, 600 MG PO DAILY, (Reported) Entered as Reported by: TONYA CAMERON on 05/03/18 1525 Cholecalciferol (Vitamin D3) (Vitamin D-3) 2,000 Unit Capsule, 2,000 UNIT PO DAILY, (Reported) Entered as Reported by: JOSESITO BAUTISTA on 06/06/15 1353 Cyanocobalamin (Vitamin B-12) (B-12 Compliance) 1,000 Mcg/1 Ml Kit, 1,000 MCG IJ monthly, (Reported) Entered as Reported by: TONYA CAMERON on 05/03/18 1523 Letrozole (Letrozole) 2.5 Mg Tablet, 2.5 MG PO DAILY, (Reported) Entered as Reported by: TONYA CAMERON on 05/03/18 1531 Review of Systems Review of Systems Constitutional: see HPI Past Slhdgfl-Qrzbiv-Xzncsb Hx Patient Social History Tobacco Use?: No Substance use?: No Alcohol Use?: Yes Alcohol Frequency: Rarely Pt feels they are or have been: No Immunizations Up To Date First/Initial COVID19 Vaccinat: YES Second COVID19 Vaccination [place]: YES Third COVID19 Vaccination Date: YES Seasonal Allergies Seasonal Allergies: Yes Past Medical History Surgery/Hospitalization HX: CA KIDNEY, W NEPHROECTOMY, BREAST CA W LUMPECTOMY ON R BREAST. OVARIAN CA W HYST GB. Appendectomy, Gallbladder, Hysterectomy [employer] History: Hysterectomy Breast, Ovarian Did You Recieve Any Treatments: Yes What Type of Treatment Did You: Chemotherapy, Radiation, Surgical Intervention Physical Exam Vital Signs Vital Signs - First Documented 10/31/22 11:10 Temp 36.5 Pulse 93 Resp 16 B/P (MAP) 116/80 (92) Pulse Ox 98 Capillary Refill : Less Than 3 Seconds General Appearance: WD/WN, no apparent distress Neck: supple, normal inspection Cardiovascular: regular rate, rhythm Respiratory: lungs clear, normal breath sounds, no respiratory distress, no accessory muscle use Extremities: normal range of motion Neurologic/Psychiatric: alert, normal mood/affect Skin: normal color, warm/dry Skin Problem Location: lower extremities (Right calf) Skin Problem Character: other (Large purple area surrounded by clear area, and a red ring. Small blister noted within the purple area. Area is indurated, no area of fluctuation.) Progress/Results/Core Measures Results/Orders Vital Signs/I&O 10/31/22 11:10 Temp 36.5 Pulse 93 Resp 16 B/P (MAP) 116/80 (92) Pulse Ox 98 Blood Pressure Mean: 92 Progress Progress Note : Progress Note Patient seen and evaluated, resting comfortably in bed, no acute distress. No area of fluctuation noted to wound that can be drained at this time. Patient is already on antibiotic. Patient instructed to continue her antibiotic and take Benadryl as needed. Patient given discharge instructions and return precautions. Departure Impression Primary Impression: Spider bite wound Disposition: 01 HOME, SELF-CARE Condition: Stable Departure-Patient Inst. Decision time for Depature: 11:45 Referrals: SAUD DICKINSON MD (PCP/Family) Primary Care Physician Patient Instructions: Spider bites Add. Discharge Instructions: Continue taking your antibiotic as prescribed. You may also take Benadryl as needed. You may take Tylenol or ibuprofen as needed for pain. Return for severe abdominal pain, body aches, fever, or any other new, concernin g, or worsening symptoms. All discharge instructions reviewed with patient and/or family. Voiced understanding. BERTHA NAVARRO BUILDING [employer]ON[employer]TER Oct 31, 2022 11:46
[2022-10-31 11:49] VITALS: BP 116/80
== END 2022-10-31 11:49 | disposition home or self-care (01) ==
LOC: EDUNIT# 11:08 → ER 11:10
DX: T63.301A Toxic effect of unspecified spider venom, accidental (unintentional), initial encounter (principal)
CPT/HCPCS: 99281

== ENCOUNTER → 2022-11-11 | Outpatient (CLI) | payer MEDICARE | LOC: WOUNDCARE 10:27 | PROVIDERS: ATTEND Family Medicine | DX: T63.331A Toxic effect of venom of brown recluse spider, accidental (unintentional), initial encounter (principal); L97.212 Non-pressure chronic ulcer of right calf with fat layer exposed; R60.0 Localized edema | CPT/HCPCS: 97597; A6253; G0463 ==

== ENCOUNTER → 2022-11-18 | Outpatient (CLI) | payer MEDICARE | LOC: WOUNDCARE 12:49 | PROVIDERS: ATTEND Family Medicine | DX: T63.331A Toxic effect of venom of brown recluse spider, accidental (unintentional), initial encounter (principal); L97.212 Non-pressure chronic ulcer of right calf with fat layer exposed; R60.0 Localized edema; I96 Gangrene, not elsewhere classified | CPT/HCPCS: A6212; G0463; 99213 ==

== ENCOUNTER → 2022-12-02 | Outpatient (CLI) | payer MEDICARE | LOC: WOUNDCARE 13:15 | PROVIDERS: ATTEND Family Medicine | DX: T63.331A Toxic effect of venom of brown recluse spider, accidental (unintentional), initial encounter (principal); L97.212 Non-pressure chronic ulcer of right calf with fat layer exposed; R60.0 Localized edema | CPT/HCPCS: A6212; G0463; 99213 ==

== ENCOUNTER → 2022-12-16 | Outpatient (CLI) | payer MEDICARE | LOC: WOUNDCARE 13:09 | PROVIDERS: ATTEND Family Medicine | DX: L97.212 Non-pressure chronic ulcer of right calf with fat layer exposed (principal); T63.331A Toxic effect of venom of brown recluse spider, accidental (unintentional), initial encounter; R60.0 Localized edema; I96 Gangrene, not elsewhere classified | CPT/HCPCS: 11042; A6197; G0463 ==

== ENCOUNTER → 2022-12-30 | Outpatient (CLI) | payer MEDICARE | LOC: WOUNDCARE 13:23 | PROVIDERS: ATTEND Family Medicine | DX: I96 Gangrene, not elsewhere classified (principal); L97.212 Non-pressure chronic ulcer of right calf with fat layer exposed; R60.0 Localized edema; T63.331A Toxic effect of venom of brown recluse spider, accidental (unintentional), initial encounter | CPT/HCPCS: 11042; A6212; G0463 ==

== ENCOUNTER → 2023-01-13 | Outpatient (CLI) | payer MEDICARE | LOC: WOUNDCARE 13:19 | PROVIDERS: ATTEND Family Medicine | DX: T63.331A Toxic effect of venom of brown recluse spider, accidental (unintentional), initial encounter (principal); I96 Gangrene, not elsewhere classified; L97.212 Non-pressure chronic ulcer of right calf with fat layer exposed; R60.0 Localized edema | CPT/HCPCS: A6212; G0463; 99212 ==

== ENCOUNTER → 2023-04-12 | Outpatient (CLI) | payer MEDICARE ==
[~2023-04-12] MED LIST changes: -ESTR0.5T PO; +ESTR0.5T2 PO
--- NOTE | 2023-04-12 12:35 | Diagnostic Imaging Report ---
INDICATION: Postmenopausal state. COMPARISON: 12/30/2020 FINDINGS: AP Spine L2-L4: [BMD (g/cm2): 0.983] [T-Score: -1.8] [Z-Score: 0.1] [BMD Previous: 1.011] [BMD % Change: -2.8*] LT Hip Neck: [BMD (g/cm2): 0.711] [T-Score: -2.4] [Z-Score: -0.6] LT Hip Total: [BMD (g/cm2):0.746] [T-Score:-2.1] [Z-Score: -0.5] [BMD Previous: 0.734] [BMD % Change: 1.6] RT Hip Neck: [BMD (g/cm2):0.773] [T-Score:-1.9] [Z-Score:-0.1] RT Hip Total: [BMD (g/cm2):0.806] [T-score:-1.6] [Z-Score:-0.1] [BMD Previous:0.781] [BMD % Change:3.2] *Indicates significant change from prior examination based on 95% confidence level. World Health Organization criteria for BMD interpretation classify patients as Normal (T-score at or above -1.0), Osteopenic (T-score between -1.0 and -2.5) or Osteoporotic (T-score at or below -2.5). LIMITATIONS AND MODIFICATION: None. FRACTURE RISK (FRAX SCORE): The ten year probability of (%): Major Osteoporotic Fracture: [19.0] Hip Fracture: [5.0] IMPRESSION: 1. Osteopenia (Low bone mass). 2. Bone mineral density within the lumbar spine has significantly decreased since the prior examination. Bone mineral density within the right hip has not significantly changed from the prior exam. 3. See below National Osteoporosis Foundation guidelines on when to potentially initiate pharmacologic therapy. Based on the National Osteoporosis Foundation Guidelines, pharmacologic treatment should be initiated in any of the following, unless clinical conditions suggest otherwise: * Any patient with prior fragility fracture of the hip or vertebrae. A spine fracture indicates 5X risk for subsequent spine fracture and 2X risk for subsequent hip fracture. * Osteoporosis (T-score <-2.5). * Postmenopausal women and men age 50 and older with low bone mass/osteopenia (T-score between -1.0 and -2.5) by DXA and 10-year major osteoporotic fracture greater than 20% or a 10-year probability of hip fracture greater than 3%. These fracture risks are supplied above in the FRAX score, if applicable. * Clinician judgement and/or patient preferences may indicate treatment for people with 10-year fracture probabilities above or below these levels. Dictated by: Dictated on workstation # [id number]
--- NOTE | 2023-04-12 17:40 | Diagnostic Imaging Report ---
EXAMINATION: 3D bilateral diagnostic mammogram with CAD. INDICATION: Right breast carcinoma. COMPARISON: This study was compared to the prior exams of 04/06/2022, 04/01/2021, 03/31/2020, and 03/30/2019. PERSONAL HISTORY: At this time, there are no current complaints. FINDINGS: The post lumpectomy changes involving the right breast seen on the previous exams are again evident and not significantly changed. There is no evidence for recurrent malignancy. The stereotactic clip and the small group of faint microcalcifications in the upper outer aspect of the left breast noted on the prior study are also again visualized and no different. There is no primary or secondary sign of malignancy noted. The fibroglandular tissue in both breasts is heterogeneously dense and this does limit the sensitivity of this exam. IMPRESSION: The post lumpectomy changes involving the right breast and the post biopsy changes in the left breast seen previously appear stable. There is no evidence for recurrent malignancy. ACR BI-RADS Category 1: Negative. Result letter will be mailed to the patient. Note: At least 10% of breast cancer is not imaged by mammography. Dictated by: Dictated on workstation # [id number]
== END ==
LOC: RAD 07:55
PROVIDERS: ATTEND Internal Medicine Hematology & Oncology
DX: C50.511 Malignant neoplasm of lower-outer quadrant of right female breast (principal); M81.0 Age-related osteoporosis without current pathological fracture; Z98.890 Other specified postprocedural states
CPT/HCPCS: 77066; 77080; G0279; 77062